=== PATIENT | female | born 1950 | race Caucasian/White ===

== ENCOUNTER 2024-07-31 02:41 | Inpatient (IN) | payer MEDICARE, OTHER ==
--- NOTE | 2024-07-31 04:13 | ED ---
Weakness HPI - General Chief complaint: Weakness Stated complaint: Weakness Time Seen by Provider: 07/31/24 04:13 Source: patient, EMS Mode of arrival: EMS Limitations: no limitations - History of Present Illness Initial comments: 74-year-old female presents to the emergency department reporting weakness. States over the past 4 days she has had weakness in her lower extremities to the point where she is falling. States that she does not feel coordinated. Reports that last week she had influenza. Patient denies any chest pain or shortness of breath. No nausea or vomiting. Patient is an extremely poor historian. Denies having any history of heart disease. Does admit to alcohol use. No changes in her bowel or bladder habits. No other alleviating, precipitating or modifying factors - Related Data Allergies Allergy/AdvReac Type Severity Reaction Status Date / Time No Known Allergies Allergy Verified 07/31/24 02:52 Review of Systems ROS Statement: Those systems with pertinent positive or pertinent negative responses have been documented in the HPI. ROS Other: All systems not noted in ROS Statement are negative. Past Medical History History of Any Multi-Drug Resistant Organisms: None Reported Past Surgical History: Section, Hysterectomy Smoking Status: Current every day smoker Past Alcohol Use History: Occasional Past Drug Use History: None Reported General Exam Limitations: no limitations General appearance: alert, appears intoxicated Head exam: Present: atraumatic, normocephalic, normal inspection Eye exam: Present: normal appearance, PERRL, EOMI. Absent: scleral icterus, conjunctival injection, periorbital swelling ENT exam: Present: normal exam, mucous membranes moist Neck exam: Present: normal inspection. Absent: tenderness, meningismus, lymphadenopathy Respiratory exam: Present: normal lung sounds bilaterally. Absent: respiratory distress, wheezes, rales, rhonchi, stridor Cardiovascular Exam: Present: regular rate, normal rhythm, normal heart sounds. Absent: systolic murmur, diastolic murmur, rubs, gallop, clicks GI/Abdominal exam: Present: soft, normal bowel sounds. Absent: distended, tenderness, guarding, rebound, rigid Extremities exam: Present: normal inspection, full ROM, normal capillary refill. Absent: tenderness, pedal edema, joint swelling, calf tenderness Back exam: Present: normal inspection Neurological exam: Present: alert, oriented X3, CN II-XII intact Psychiatric exam: Present: normal affect, normal mood Skin exam: Present: warm, dry, intact, normal color. Absent: rash Course Vital Signs 07/31/24 02:43 Temperature 97.7 F Pulse Rate 67 Respiratory 18 Rate Blood Pressure 111/80 O2 Sat by Pulse 100 Oximetry Medical Decision Making - Medical Decision Making Was pt. sent in by a medical professional or institution (KIMI Hernadez, [employer], urgent care, hospital, or prison...) When possible be specific @ -[No] Did you speak to anyone other than the patient for history (EMS, parent, family, police, friend...)? What history was obtained from this source @ -[No] Did you review nursing and triage notes (agree or disagree)? Why? @ -[I reviewed and agree with nursing and triage notes] Were old charts reviewed (outside hosp., previous admission, EMS record, old EKG, old radiological studies, urgent care reports/EKG's, prison records)? Report findings @ -[No old charts were reviewed] Differential Diagnosis (chest pain, altered mental status, abdominal pain women, abdominal pain men, vaginal bleeding, weakness, fever, dyspnea, syncope, headache, dizziness, GI bleed, back pain, seizure, CVA, palpatations, mental health, musculoskeletal)? @ -[not applicable] EKG interpreted by me (3pts min.). @ -Yes and demonstrates sinus rhythm with a rate of 66. MT interval 148. QRS 83. Qtc 482. Diffuse ST depression X-rays interpreted by me (1pt min.). @ -[None done] CT interpreted by me (1pt min.). @ -[None done] U/S interpreted by me (1pt. min.). @ -[None done] What testing was considered but not performed or refused? (CT, X-rays, U/S, labs)? Why? @ -[None] What meds were considered but not given or refused? Why? @ -[None] Did you discuss the management of the patient with other professionals (professionals i.e. KIMI Hernadez, [employer], lab, RT, psych nurse, community mental health social worker, medical apparatus model maker, teacher, strategic intelligence officer, case operator)? Give summary @ -[No] Was smoking cessation discussed for >3mins.? @ -[No] Was critical care preformed (if so, how long)? @ -[No] Were there social determinants of health that impacted care today? How? (Homelessness, low income, unemployed, alcoholism, drug addiction, transportation, low edu. Level, literacy, decrease access to med. care, fci, rehab)? @ -[No] Was there de-escalation of care discussed even if they declined (Discuss DNR or withdrawal of care, Hospice)? DNR status @ -[No] What co-morbidities impacted this encounter? (DM, HTN, Smoking, COPD, CAD, Cancer, CVA, ARF, Chemo, Hep., AIDS, mental health diagnosis, sleep apnea, morbid obesity)? @ -[None] Was patient admitted / discharged? Hospital course, mention meds given and route, prescriptions, significant lab abnormalities, going to OR and other pertinent info. @ -[hospital course] Undiagnosed new problem with uncertain prognosis? @ -[No] Drug Therapy requiring intensive monitoring for toxicity (Heparin, Nitro, I nsulin, Cardizem)? @ -[No] Were any procedures done? @ -[No] Diagnosis/symptom? @ -[default] Acute, or Chronic, or Acute on Chronic? @ -[default] Uncomplicated (without systemic symptoms) or Complicated (systemic symptoms)? @ -[default] Side effects of treatment? @ -[No] Exacerbation, Progression, or Severe Exacerbation? @ -[No] Poses a threat to life or bodily function? How? (Chest pain, [place], [place], pneumonia, PE, COPD, DKA, ARF, appy, cholecystitis, CVA, Diverticulitis, Homicidal, Suicidal, threat to staff... and all critical care pts) @ -[No] - Lab Data Result diagrams: 07/31/24 02:50 07/31/24 02:50 Lab Results 07/31/24 07/31/24 07/31/24 Range/Units 02:50 02:50 02:50 WBC 13.41 H (4.50-10.00) 10*3/uL RBC 3.13 L (4.10-5.20) 10*6/uL Hgb 12.8 (12.0-15.0) g/dL Hct 34.9 L (37.2-46.3) % MCV 111.5 H (80.0-97.0) fL MCH 40.9 H (27.0-32.0) pg MCHC 36.7 (32.0-37.0) g/dL Plt Count 264 (140-440) 10*3/uL MPV 11.5 (9.5-12.2) fL Immature Gran % (Auto) 0.4 % Neutrophils % 82.1 % Lymphocytes % 8.4 % Monocytes % 8.7 % Eosinophils % 0.1 % Basophils % 0.3 % Immature Gran # 0.06 H (0.00-0.04) 10*3/uL Neutrophils # 11.02 H (1.80-7.70) 10*3/uL Lymphocytes # 1.12 (0.90-5.00) 10*3/uL Monocytes # 1.16 H (0.20-1.00) 10*3/uL Eosinophils # 0.01 L (0.04-0.35) 10*3/uL Basophils # 0.04 (0.00-0.10) 10*3/uL Manual Slide Review Performed PT 11.4 (10.0-12.5) sec INR 1.0 (<1.2) APTT 22.4 (22.0-30.0) sec Sodium 129 L (137-145) mmol/L Potassium 4.0 (3.5-5.1) mmol/L Chloride 94 L (98-107) mmol/L Carbon Dioxide 18 L (22-30) mmol/L Anion Gap 17 mmol/L BUN 14 (7-17) mg/dL Creatinine 0.61 (0.52-1.04) mg/dL Est GFR (CKD-EPI)AfAm >90 (>60 ml/min/1.73 sqM) Est GFR (CKD-EPI)NonAf >90 (>60 ml/min/1.73 sqM) Glucose 76 (74-99) mg/dL Lactic Ac Sepsis Rflx Plasma Lactic Acid Sher (0.7-2.0) mmol/L Calcium 9.0 (8.4-10.2) mg/dL Magnesium 1.3 L (1.6-2.3) mg/dL Total Bilirubin 1.1 (0.2-1.3) mg/dL AST 66 H (14-36) U/L ALT 38 H (4-34) U/L Alkaline Phosphatase 99 (38-126) U/L Troponin I (0.000-0.034) ng/mL NT-Pro-B Natriuret Pep 918 pg/mL Total Protein 5.7 L (6.3-8.2) g/dL Albumin 3.2 L (3.5-5.0) g/dL Urine Color Urine Appearance (Clear) Urine pH (5.0-8.0) Ur Specific Lutz (1.001-1.035) Urine Protein (Negative) Urine Glucose (UA) (Negative) Urine Ketones (Negative) Urine Blood (Negative) Urine Nitrite (Negative) Urine Bilirubin (Negative) Urine Urobilinogen (<2.0) mg/dL Ur Leukocyte Esterase (Negative) Urine RBC (0-5) /hpf Urine WBC (0-5) /hpf Urine WBC Clumps (None) /hpf Ur Squamous Epith Cells (0-4) /hpf Urine Bacteria (None) /hpf Hyaline Casts (0-2) /lpf Urine Mucus (None) /hpf Serum Alcohol 55 mg/dL Influenza Type A (PCR) (Not Detectd) Influenza Type B (PCR) (Not Detectd) RSV (PCR) (Not Detectd) SARS-CoV-2 (PCR) (Not Detectd) 07/31/24 07/31/24 07/31/24 Range/Units 02:50 02:50 04:19 WBC (4.50-10.00) 10*3/uL RBC (4.10-5.20) 10*6/uL Hgb (12.0-15.0) g/dL Hct (37.2-46.3) % MCV (80.0-97.0) fL MCH (27.0-32.0) pg MCHC (32.0-37.0) g/dL Plt Count (140-440) 10*3/uL MPV (9.5-12.2) fL Immature Gran % (Auto) % Neutrophils % % Lymphocytes % % Monocytes % % Eosinophils % % Basophils % % Immature Gran # (0.00-0.04) 10*3/uL Neutrophils # (1.80-7.70) 10*3/uL Lymphocytes # (0.90-5.00) 10*3/uL Monocytes # (0.20-1.00) 10*3/uL Eosinophils # (0.04-0.35) 10*3/uL Basophils # (0.00-0.10) 10*3/uL Manual Slide Review PT (10.0-12.5) sec INR (<1.2) APTT (22.0-30.0) sec Sodium (137-145) mmol/L Potassium (3.5-5.1) mmol/L Chloride (98-107) mmol/L Carbon Dioxide (22-30) mmol/L Anion Gap mmol/L BUN (7-17) mg/dL Creatinine (0.52-1.04) mg/dL Est GFR (CKD-EPI)AfAm (>60 ml/min/1.73 sqM) Est GFR (CKD-EPI)NonAf (>60 ml/min/1.73 sqM) Glucose (74-99) mg/dL Lactic Ac Sepsis Rflx Plasma Lactic Acid Sher 4.3 H* (0.7-2.0) mmol/L Calcium (8.4-10.2) mg/dL Magnesium (1.6-2.3) mg/dL Total Bilirubin (0.2-1.3) mg/dL AST (14-36) U/L ALT (4-34) U/L Alkaline Phosphatase (38-126) U/L Troponin I 0.013 (0.000-0.034) ng/mL NT-Pro-B Natriuret Pep pg/mL Total Protein (6.3-8.2) g/dL Albumin (3.5-5.0) g/dL Urine Color Urine Appearance (Clear) Urine pH (5.0-8.0) Ur Specific Lutz (1.001-1.035) Urine Protein (Negative) Urine Glucose (UA) (Negative) Urine Ketones (Negative) Urine Blood (Negative) Urine Nitrite (Negative) Urine Bilirubin (Negative) Urine Urobilinogen (<2.0) mg/dL Ur Leukocyte Esterase (Negative) Urine RBC (0-5) /hpf Urine WBC (0-5) /hpf Urine WBC Clumps (None) /hpf Ur Squamous Epith Cells (0-4) /hpf Urine Bacteria (None) /hpf Hyaline Casts (0-2) /lpf Urine Mucus (None) /hpf Serum Alcohol mg/dL Influenza Type A (PCR) Not Detected (Not Detectd) Influenza Type B (PCR) Not Detected (Not Detectd) RSV (PCR) Not Detected (Not Detectd) SARS-CoV-2 (PCR) Not Detected (Not Detectd) 07/31/24 07/31/24 Range/Units 05:12 05:55 WBC (4.50-10.00) 10*3/uL RBC (4.10-5.20) 10*6/uL Hgb (12.0-15.0) g/dL Hct (37.2-46.3) % MCV (80.0-97.0) fL MCH (27.0-32.0) pg MCHC (32.0-37.0) g/dL Plt Count (140-440) 10*3/uL MPV (9.5-12.2) fL Immature Gran % (Auto) % Neutrophils % % Lymphocytes % % Monocytes % % Eosinophils % % Basophils % % Immature Gran # (0.00-0.04) 10*3/uL Neutrophils # (1.80-7.70) 10*3/uL Lymphocytes # (0.90-5.00) 10*3/uL Monocytes # (0.20-1.00) 10*3/uL Eosinophils # (0.04-0.35) 10*3/uL Basophils # (0.00-0.10) 10*3/uL Manual Slide Review PT (10.0-12.5) sec INR (<1.2) APTT (22.0-30.0) sec Sodium (137-145) mmol/L Potassium (3.5-5.1) mmol/L Chloride (98-107) mmol/L Carbon Dioxide (22-30) mmol/L Anion Gap mmol/L BUN (7-17) mg/dL Creatinine (0.52-1.04) mg/dL Est GFR (CKD-EPI)AfAm (>60 ml/min/1.73 sqM) Est GFR (CKD-EPI)NonAf (>60 ml/min/1.73 sqM) Glucose (74-99) mg/dL Lactic Ac Sepsis Rflx Y Plasma Lactic Acid Sher (0.7-2.0) mmol/L Calcium (8.4-10.2) mg/dL Magnesium (1.6-2.3) mg/dL Total Bilirubin (0.2-1.3) mg/dL AST (14-36) U/L ALT (4-34) U/L Alkaline Phosphatase (38-126) U/L Troponin I (0.000-0.034) ng/mL NT-Pro-B Natriuret Pep pg/mL Total Protein (6.3-8.2) g/dL Albumin (3.5-5.0) g/dL Urine Color Yellow Urine Appearance Cloudy H (Clear) Urine pH 6.5 (5.0-8.0) Ur Specific Lutz 1.014 (1.001-1.035) Urine Protein 1+ H (Negative) Urine Glucose (UA) Negative (Negative) Urine Ketones 1+ H (Negative) Urine Blood Moderate H (Negative) Urine Nitrite Positive H (Negative) Urine Bilirubin Negative (Negative) Urine Urobilinogen 4.0 (<2.0) mg/dL Ur Leukocyte Esterase Large H (Negative) Urine RBC 18 H (0-5) /hpf Urine WBC >182 H (0-5) /hpf Urine WBC Clumps Occasional H (None) /hpf Ur Squamous Epith Cells 2 (0-4) /hpf Urine Bacteria Many H (None) /hpf Hyaline Casts 10 H (0-2) /lpf Urine Mucus Rare H (None) /hpf Serum Alcohol mg/dL Influenza Type A (PCR) (Not Detectd) Influenza Type B (PCR) (Not Detectd) RSV (PCR) (Not Detectd) SARS-CoV-2 (PCR) (Not Detectd) Disposition Clinical Impression: Abnormal EKG, Multiple falls, Ataxia, Alcohol use Disposition: ADMITTED IP TO THIS [facility] Condition: Stable Is patient prescribed a controlled substance at d/c from ED?: No Referrals: None,Stated [REFERRING] - 1-2 days Time of Disposition: 07:11 Decision to Admit Reason: Admit from EC Decision Date: 07/31/24 Decision Time: 07:11
[2024-07-31 04:31] LABS: Basophils # (A) 0.04 10*3/uL (0.00-0.10); Basophils % (A) 0.3 %; Eosinophils # (A) 0.01 10*3/uL (0.04-0.35); Eosinophils % (A) 0.1 %; HCT 34.9 % (37.2-46.3); HGB 12.8 g/dL (12.0-15.0); Lymphocytes # (A) 1.12 10*3/uL (0.90-5.00); Lymphocytes % (A) 8.4 %; MCH 40.9 pg (27.0-32.0); MCHC 36.7 g/dL (32.0-37.0); MCV 111.5 fL (80.0-97.0); Mean Platelet Volume 11.5 fL (9.5-12.2); Monocytes # (A) 1.16 10*3/uL (0.20-1.00); Monocytes % (A) 8.7 %; Neutrophils # (A) 11.02 10*3/uL (1.80-7.70); Neutrophils % (A) 82.1 %; Platelet Count 264 10*3/uL (140-440); RBC 3.13 10*6/uL (4.10-5.20); RDW 12.2 % (11.5-14.5); WBC 13.41 10*3/uL (4.50-10.00)
[2024-07-31 04:36] LABS: ALT 38 U/L (4-34); AST 66 U/L (14-36); African American GFR (CKD) >90 (>60 ml/min/1.73 sqM); Albumin 3.2 g/dL (3.5-5.0); Alcohol 55 mg/dL; Alkaline Phosphatase 99 U/L (38-126); Anion Gap 17 mmol/L; Blood Urea Nitrogen 14 mg/dL (7-17); Carbon Dioxide 18 mmol/L (22-30); Chloride 94 mmol/L (98-107); Glucose 76 mg/dL (74-99); Magnesium 1.3 mg/dL (1.6-2.3); Non-African American GFR(CKD) >90 (>60 ml/min/1.73 sqM); Sodium 129 mmol/L (137-145); Total Bilirubin 1.1 mg/dL (0.2-1.3); Total Protein 5.7 g/dL (6.3-8.2)
[2024-07-31 04:45] LABS: NT-Pro-B-Type Natriuretic Pept 918 pg/mL
[2024-07-31 05:06] LABS: Partial Thromboplastin Time 22.4 sec (22.0-30.0); Prothrombin Time 11.4 sec (10.0-12.5)
[2024-07-31 05:12] LABS: Influenza A Not Detected (Not Detectd); Influenza B Not Detected (Not Detectd); RSV Not Detected (Not Detectd)
[2024-07-31 07:02] LABS: Appearance,Urine Cloudy (Clear); Bacteria,Urine Many /hpf; Bilirubin,Urine Negative (Negative); Blood,Urine Moderate (Negative); Color,Urine Yellow; Glucose,Urine (UA) Negative (Negative); Hyaline Casts,Urine 10 /lpf (0-2); Ketones,Urine 1+ (Negative); Leukocyte Esterase,Urine Large (Negative); Mucus,Urine Rare /hpf; Nitrite,Urine Positive (Negative); PH, Urine 6.5 (5.0-8.0); Protein,Urine 1+ (Negative); RBC,Urine 18 /hpf (0-5); Specific Gravity,Urine 1.014 (1.001-1.035); Squamous Epithelial Cell,Urine 2 /hpf (0-4); WBC,Urine >182 /hpf (0-5)
[2024-07-31] MEDS ORDERED: NALOXONE 0.4 MG/ML 1 ML VIAL IV PRN (07:11)
[2024-07-31] MEDS ORDERED: LORazepam 0.5 MG TAB PO PRN (07:18)
[2024-07-31] MEDS ORDERED: LORazepam 1 MG TAB PO PRN ×3 (07:18)
--- NOTE | 2024-07-31 07:21 | XR ---
EXAMINATION TYPE: XR chest 2V DATE OF EXAM: 07/31/2024 5:33 AM COMPARISON: None CLINICAL INDICATION: Female, 74 years old with history of Cough/pain, , TECHNIQUE: AP and lateral views FINDINGS: Heart upper limits of normal in size. Aorta and pulmonary vasculature within normal limits. No consol idation or pleural effusion. Mild hyperinflation. IMPRESSION: Mild hyperinflation may relate to a depth of inspiration or underlying emphysema. Otherwise, no acute process seen. [facility], Workstation: [employer], 07/31/2024 7:19 AM
--- NOTE | 2024-07-31 07:21 | CT ---
EXAMINATION TYPE: CT brain wo con DATE OF EXAM: 07/31/2024 5:32 AM COMPARISON: None. CLINICAL INDICATION: Female, 74 years old with history of ataxia, Patient presents to the ED via EMS from home for increased fatigue, decreased appetite, and general weakness x 5 days., TECHNIQUE: Examination was done in axial plane without intravenous contrast. Coronal and sagittal r econstructions performed. CT DLP: 1097.4 mGycm, Automated exposure control for dose reduction was used. FINDINGS: There is no evidence of acute intracranial hemorrhage, acute ischemic changes, mass, mass-effect, or extra-axial fluid collection. There is no effacement of cerebral sulci or basal subarachnoid cister ns. There is no hydrocephalus. There is no midline shift. Huitron-white matter distinction is preserv ed. Mild patchy periventricular white matter hypodensity. Atherosclerotic calcifications within the bilat eral carotid siphons. Tiny 8 mm polyp or mucosal retention cyst floor of the left maxillary sinus. Otherwise, paranasal sin uses and mastoid air cells well pneumatized. Orbits and globes are intact. IMPRESSION: Mild changes of chronic small vessel ischemic disease. No acute intracranial abnormality seen. [facility], , 07/31/2024 7:18 AM
[2024-07-31] MEDS: MAGNESIUM SULFATE-D5W PMX 1 GM in DEXTROSE/WATER 1 100ML.BAG IVPB SCH (07:38)
--- NOTE | 2024-07-31 10:04 | P.CRDCN ---
History of Present Illness History of present illness: HISTORY OF PRESENT ILLNESS: This is a 74-year-old female with a past medical history significant for alcohol abuse and nicotine dependence. 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 We have been asked to see the patient in consultation for abnormal EKG. Patient examined at the bedside in the emergency room. Patient presented to the hospital with generalized weakness and frequent falls. Patient denied having any chest pain or pressure. She denied having any shortness of breath. She denies any dizziness or lightheadedness. Denies any episodes of syncope at home. Blood pressure 122/69. DIAGNOSTICS: - EKG reveals sinus mechanism with asymmetrical T wave inversions in inferior lateral leads - Chest xray mild hyperinflation may relate to a depth of inspiration or underlying emphysema. Otherwise no acute process seen.. - Laboratory data: WBC 13.41. Hemoglobin 12.8. Platelet count 264. Sodium 129. Potassium 4.0. BUN 14. Creatinine 0.61. Lactic acid 4.3. Repeat 2.5. proBNP 918. Troponin negative x 2. Serum alcohol 55. - Current home cardiac medications include atenolol 50 mg daily. - No previous echocardiogram, stress test, or cardiac catheterization available in EMR for review REVIEW OF SYSTEMS: At the time of my exam: CONSTITUTIONAL: Denies fever or chills. HEENT: Denies blurred vision, vision changes, or eye pain. Denies hemoptysis CARDIOVASCULAR: Denies chest pain. Denies orthopnea. Denies PND. Denies palpitations RESPIRATORY: Denies shortness of breath. GASTROINTESTINAL: Denies abdominal pain. Denies nausea or vomiting. HEMATOLOGIC: Denies bleeding disorders. GENITOURINARY: Denies any blood in urine. SKIN: Denies pruitis. Denies rash. PHYSICAL EXAM: VITAL SIGNS: Reviewed. GENERAL: Well-developed in no acute distress. HEENT: Head is normocephalic. Pupils are equal, round. Sclerae anicteric. Mucous membranes of the mouth are moist. Neck supple. No JVD or thyromegaly LUNGS: Respirations even and unlabored. Lungs essentially clear to auscultation bilaterally. HEART: Regular rate and rhythm. S1 and S2 heard. ABDOMEN: Soft. Nondistended. Nontender. EXTREMITIES: Normal range of motion. No clubbing or cyanosis. Peripheral pulse s intact. No lower extremity edema NEUROLOGIC: Lethargic ASSESSMENT: Generalized weakness and falls Acute alcohol intoxication, serum alcohol 55 Hyponatremia Lactic acidosis Abnormal UA, possible UTI Abnormal EKG, likely representing LVH, no evidence of acute coronary syndrome History of nicotine dependence History of alcohol abuse PLAN: An acute coronary event has been ruled out Obtain 2D echo to assess cardiac structure and function Continue telemetry monitoring No indication for stress testing or cardiac catheterization at this time Further recommendations pending patient course Nurse practitioner note has been reviewed by physician. Signing provider agrees with the documented findings, assessment, and plan of care documented by SETTLEMENT TECHNICIAN as a scribe. Past Medical History History of Any Multi-Drug Resistant Organisms: None Reported Past Surgical History: Section, Hysterectomy Smoking Status: Current every day smoker Past Alcohol Use History: Occasional Past Drug Use History: None Reported Medications and Allergies Home Medications Medication Instructions Recorded Confirmed Type Fluticasone Nasal Jenkins [Flonase 2 spr EA NOSTRIL DAILY 07/31/24 07/31/24 History Nasal Jenkins] Fluticasone Nasal Jenkins [Flonase 2 spr EA NOSTRIL HS PRN 07/31/24 07/31/24 History Nasal Jenkins] PARoxetine HCL [Paxil] 30 mg PO DAILY 07/31/24 07/31/24 History atenoloL [Tenormin] 50 mg PO DAILY 07/31/24 07/31/24 History Allergies Allergy/AdvReac Type Severity Reaction Status Date / Time No Known Allergies Allergy Verified 07/31/24 09:54 Physical Exam Vitals: Vital Signs Temp Pulse Resp BP Pulse Ox 07/31/24 09:54 78 17 122/69 96 07/31/24 02:43 97.7 F 67 18 111/80 100 Intake and Output 07/30/24 07/31/24 07/31/24 22:59 06:59 14:59 Other: Weight 56.699 kg Results 07/31/24 02:50 07/31/24 02:50 Cardiac Enzymes 07/31/24 07/31/24 07/31/24 Range/Units 02:50 02:50 07:30 AST 66 H (14-36) U/L Troponin I 0.013 0.021 (0.000-0.034) ng/mL Coagulation 07/31/24 Range/Units 02:50 PT 11.4 (10.0-12.5) sec APTT 22.4 (22.0-30.0) sec CBC 07/31/24 Range/Units 02:50 WBC 13.41 H (4.50-10.00) 10*3/uL RBC 3.13 L (4.10-5.20) 10*6/uL Hgb 12.8 (12.0-15.0) g/dL Hct 34.9 L (37.2-46.3) % Plt Count 264 (140-440) 10*3/uL Comprehensive Metabolic Panel 07/31/24 Range/Units 02:50 Sodium 129 L (137-145) mmol/L Potassium 4.0 (3.5-5.1) mmol/L Chloride 94 L (98-107) mmol/L Carbon Dioxide 18 L (22-30) mmol/L BUN 14 (7-17) mg/dL Creatinine 0.61 (0.52-1.04) mg/dL Glucose 76 (74-99) mg/dL Calcium 9.0 (8.4-10.2) mg/dL AST 66 H (14-36) U/L ALT 38 H (4-34) U/L Alkaline Phosphatase 99 (38-126) U/L Total Protein 5.7 L (6.3-8.2) g/dL Albumin 3.2 L (3.5-5.0) g/dL Current Medications Generic Name Dose Route Start Last Admin Trade Name Freq PRN Reason Stop Dose Admin Lorazepam 0.5 mg 07/31/24 07:18 Lorazepam 0.5 Mg Tab PO Q4HR PRN Ciwa 4 To 5 Lorazepam 1 mg 07/31/24 07:18 Lorazepam 1 Mg Tab PO Q4HR PRN Ciwa 6 To 7 Lorazepam 2 mg 07/31/24 07:18 Lorazepam 1 Mg Tab PO Q2HR PRN Ciwa 10 or greater Lorazepam 2 mg 07/31/24 07:18 Lorazepam 1 Mg Tab PO Q3HR PRN Ciwa 8 To 9 Naloxone HCl 0.2 mg 07/31/24 07:11 Naloxone 0.4 Mg/Ml 1 Ml Vial IV Q2M PRN Opioid Reversal Intake and Output 07/30/24 07/31/24 07/31/24 22:59 06:59 14:59 Other: Weight 56.699 kg 07/31/24 02:50 07/31/24 02:50
[2024-07-31] MEDS ORDERED: FLUTICASONE NASAL 50MCG/SPRAY 16GM BTL EA NOSTRIL PRN (12:25)
--- NOTE | 2024-07-31 12:51 | CA ---
Transthoracic Echo Report Name: Brittany Sheppard Age: 74 Gender: F : 1950 Exam Date: 07/31/2024 11:21 Exam Location: [facility] Ht (in): 65 Wt (lb): 125 Ordering Physician: Felicity Cabrera Attending/Referring Phys: [id number], Deborah Blast Furnace Operator Landy Santos RDCS Procedure CPT: Indications: abnormal ekg Cardiac Hx: Technical Quality: Fair Contrast 1: Total Dose (mL): Contrast 2: Total Dose (mL): MEASUREMENTS (Male / Female) Normal Values 2D ECHO LV Diastolic Diameter PLAX 3.6 cm 4.2 - 5.9 / 3.9 - 5.3 cm LV Systolic Diameter PLAX 2.3 cm IVS Diastolic Thickness 1.1 cm 0.6 - 1.0 / 0.6 - 0.9 cm LVPW Diastolic Thickness 1.1 cm 0.6 - 1.0 / 0.6 - 0.9 cm LV Relative Wall Thickness 0.6 RV Internal Dim ED PLAX 1.8 cm LA Systolic Diameter LX 2.8 cm 3.0 - 4.0 / 2.7 - 3.8 cm LV Diastolic Volume MOD BP 30.6 cm??? 67 - 155 / 56 - 104 cm??? LV Systolic Volume MOD BP 10.1 cm??? 22 - 58 / 19 - 49 cm??? LV Ejection Fraction MOD BP 67.1 % >= 55 % LV Cardiac Index MOD BP 980.8 cm???/min???m??? LV Diastolic Volume MOD 4C 35.6 cm??? LV Systolic Volume MOD 4C 10.9 cm??? LV Ejection Fraction MOD 4C 69.4 % LV Cardiac Index MOD 4C 1179.7 cm???/min???m??? LV Diastolic Length 4C 5.5 cm LV Systolic Length 4C 4.5 cm LV Diastolic Volume MOD 2C 23.9 cm??? LV Systolic Volume MOD 2C 8.6 cm??? LV Ejection Fraction MOD 2C 63.9 % LV Cardiac Index MOD 2C 729.6 cm???/min???m??? LV Diastolic Length 2C 5.0 cm LV Systolic Length 2C 4.1 cm M-MODE Aortic Root Diameter MM 2.8 cm LA Systolic Diameter MM 2.8 cm LA Ao Ratio MM 1.0 AV Cusp Separation MM 2.2 cm DOPPLER AV Peak Velocity 112.8 cm/s AV Peak Gradient 5.1 mmHg AI Peak Velocity 285.3 cm/s AI Peak Gradient 32.6 mmHg AI Pressure Half Time 1288.2 ms Mitral E Point Velocity 61.6 cm/s Mitral A Point Velocity 95.5 cm/s Mitral E to A Ratio 0.6 MV Deceleration Time 348.2 ms MV E' Velocity 5.0 cm/s Mitral E to MV E' Ratio 12.3 TR Peak Velocity 251.9 cm/s TR Peak Gradient 25.4 mmHg Right Ventricular Systolic Press 35.5 mmHg FINDINGS Left Ventricle Left ventricular ejection fraction is estimated at 55-60%. Mildly increased septal wall thickness. Mildly increased posterior wall thickness. Normal left ventricular systolic function with no obvious regional wall motion abnormalities. Right Ventricle Normal right ventricular size and function. Mild pulmonary hypertension. Right Atrium Normal right atrial size. Left Atrium Normal left atrial size. Mitral Valve Structurally normal mitral valve. Trace mitral regurgitation. No mitral stenosis. Aortic Valve Trileaflet aortic valve. No aortic stenosis. Trace aortic regurgitation. Tricuspid Valve Structurally normal tricuspid valve. Moderate tricuspid regurgitation. No tricuspid stenosis. Pulmonic Valve Structurally normal pulmonic valve. Trace pulmonic regurgitation. No pulmonic stenosis. Pericardium No pericardial or pleural effusion. Aorta Normal size aortic root and proximal ascending aorta. CONCLUSIONS Reason for test. Abnormal EKG with asymmetric T wave inversions in the lateral precordial leads and inferior leads Mild LVH with preserved systolic function Normal RV size and function Previewed by: Dr. Shad Etienne MD (Electronically Signed) Final Date: 31 Jul 2024 12:50
--- NOTE | 2024-07-31 23:28 | HP ---
HISTORY AND PHYSICAL CHIEF COMPLAINT: Weakness and fall and EtOH. HISTORY OF PRESENT ILLNESS: A 74-year-old woman with a past medical history of apparently EtOH is complaining of weakness and the patient apparently fell and also complaining of upper back pain. There is no history of any fever, rigors, chills at this time. PAST MEDICAL HISTORY: Reviewed includes section, hysterectomy, nicotine dependence, EtOH. HOME MEDICATIONS: Reviewed include Flonase and rest of the medications in the chart also reviewed. ALLERGIES: None. FAMILY HISTORY: No history of heart disease or strokes in the family. SOCIAL HISTORY: ETOH and smoking. REVIEW OF SYSTEMS: A 14-point review of systems is negative as mentioned earlier. PHYSICAL EXAMINATION: VITAL SIGNS: Pulse 67, blood pressure 111/80, respirations 18. HEENT: Conjunctivae normal. NECK: No jugular venous distention. CARDIOVASCULAR: S1, S2. RESPIRATION: Breath sounds diminished at the bases. ABDOMEN: Soft, nontender. LEGS: No edema. NERVOUS SYSTEM: No focal deficit. LABORATORY DATA: Lactic acid 2.5. UA noted. WBC 13.4. ASSESSMENT: 1. Generalized weakness and fall. 2. Rule out urinary tract infection with sepsis. 3. History of EtOH possibly and history of nicotine dependence. 4. Elevated AST/ALT. 5. Hyponatremia. 6. Increased WBC. 7. Gait dysfunction. 8. History of nicotine dependence. RECOMMENDATION: 1. This 74-year-old woman presented with multiple complex medical issues, we will monitor the patient closely. I would recommend CIWA protocol. I would also recommend empiric antibiotics, cultures, Infectious Disease evaluation, PT/OT evaluation, social work consult. The patient might require ECF evaluation. 2. I would also recommend x-rays of the back if the pain persist. Prognosis is guarded because of multiple complex medical issues. Cardiology also been consulted. 3. ST-T changes in the EKG, rule out coronary artery disease. MMODL / IJN: [id number] /
[2024-08-01] MEDS: PANTOPRAZOLE 40 MG TABLET PO SCH (06:11)
[2024-08-01] MEDS: PARoxetine 10 MG TAB PO SCH (08:23)
[2024-08-01] MEDS: atenoloL 50 MG TAB PO SCH (08:23)
[2024-08-01] MEDS: FLUTICASONE NASAL 50MCG/SPRAY 16GM BTL EA NOSTRIL SCH (08:23)
[2024-08-01 09:19] LABS: HCT 34.6 % (37.2-46.3); HGB 12.4 g/dL (12.0-15.0); MCH 40.1 pg (27.0-32.0); MCHC 35.8 g/dL (32.0-37.0); Mean Platelet Volume 11.1 FL (9.5-12.2); NRBC Per 100 WBC 0 X 10*3/uL (0.00-0.01); Platelet Count 208 X 10*3/uL (140-440); RBC 3.09 X 10*6/uL (4.10-5.20); RDW 12.5 % (11.5-14.5); WBC 8.89 X 10*3/uL (4.50-10.00)
[2024-08-01 09:47] LABS: BUN/Creat Ratio 20.17 Ratio (12.00-20.00); Blood Urea Nitrogen 12.1 mg/dL (9.0-27.0); Calcium 8.6 mg/dL (8.7-10.3); Carbon Dioxide 23.5 mmol/L (21.6-31.8); Chloride 92 mmol/L (96-109); Glucose 135 mg/dL (70-110); Potassium 3.5 mmol/L (3.5-5.5); Sodium 130 mmol/L (135-145)
[2024-08-01 10:07] LABS: Basophils # (A) 0.03 X 10*3/uL (0.00-0.10); Basophils % (A) 0.3 %; Eosinophils # (A) 0.01 X 10*3/uL (0.04-0.35); Eosinophils % (A) 0.1 %; Lymphocytes # (A) 0.65 X 10*3/uL (0.90-5.00); Lymphocytes % (A) 7.3 %; Macrocytosis (M) 2+ (None Seen); Monocytes # (A) 0.25 X 10*3/uL (0.20-1.00); Monocytes % (A) 2.8 %; Neutrophils # (A) 7.88 X 10*3/uL (1.80-7.70); Neutrophils % (A) 88.7 %
--- NOTE | 2024-08-01 11:58 | P.PN ---
Subjective Progress Note Date: 08/01/24 This is Bruno Sanchez NP, I'm dictating on behalf of Dr. Etienne's H&P and A&P. Patient was interviewed and examined. Patient is a pleasant 74-year-old female who presented to the hospital for generalized weakness and frequent falls, and cardiology was consulted to evaluate an abnormal EKG. EKG showed asymmetrical T wave inversions in the inferior and lateral leads. Today patient reports that she is feeling okay. She denies any chest pain or shortness of breath. Echocardiogram was completed yesterday which demonstrates a left ventricular ejection fraction of 55 to 60%, mildly increased septal wall thickness, mildly increased posterior wall thickness, normal left ventricular systolic function with no obvious regional wall motion abnormalities, normal RV size and function. GENERAL: Well-appearing, well-nourished and in no acute distress. NECK: Supple without JVD or thyromegaly. LUNGS: Breath sounds clear to auscultation bilaterally. Respiration equal and unlabored. No wheezes, rales or rhonchi. HEART: Regular rate and rhythm without murmurs, rubs or gallops. S1 and S2 heard. EXTREMITIES: Normal range of motion, no edema. No clubbing or cyanosis. Peripheral pulses intact and strong. VITALS: Temp 98.1, pulse 75, respirations 16, blood pressure 97/64, O2 saturation 97% on room air TELEMETRY: Sinus mechanism LABS: White count 8.8, hemoglobin 12.4, platelets 208, sodium 130, potassium 3.5, chloride 92, BUN 12.1, creatinine 0.6 calcium 8.6 IMPRESSION: 1. Generalized weakness and falls 2. Acute alcohol intoxication, serum alcohol 55 3. Hyponatremia 4. Lactic acidosis 5. Abnormal UA, possible UTI 6. Abnormal EKG, representing mild LVH, no evidence of acute coronary syndrome 7. History of nicotine dependence 8. History of alcohol abuse PLAN: Continue current medications as prescribed. No further recommendations from a cardiology standpoint. Patient can be discharged from a cardiology standpoint. Any further testing will be done as an outpatient. Patient may follow-up with Dr. Etienne 1 to 2 weeks after discharge. Thank you for allowing us to participate in the care of this patient. Objective - Vital Signs Vital signs: Vital Signs Temp 98.1 F 08/01/24 07:00 Pulse 75 08/01/24 07:00 Resp 16 08/01/24 07:00 BP 97/64 08/01/24 07:00 Pulse Ox 97 08/01/24 07:00 FiO2 Intake & Output 07/31/24 08/01/24 08/01/24 18:59 06:59 18:59 Weight 56.699 kg Other: Voiding Method Bedside Commode # Voids 1 # Bowel Movements 0 - Labs CBC & Chem 7: 08/01/24 06:42 08/01/24 06:42 Labs: Abnormal Lab Results - Last 24 Hours (Table) 08/01/24 08/01/24 Range/Units 06:42 06:42 RBC 3.09 L (4.10-5.20) X 10*6/uL Hct 34.6 L (37.2-46.3) % MCV 112.0 H (80.0-97.0) FL MCH 40.1 H (27.0-32.0) pg Immature Gran # 0.07 H (0.00-0.04) X 10*3/uL Neutrophils # 7.88 H (1.80-7.70) X 10*3/uL Lymphocytes # 0.65 L (0.90-5.00) X 10*3/uL Eosinophils # 0.01 L (0.04-0.35) X 10*3/uL Macrocytosis (manual) 2+ A (None Seen) Sodium 130 L (135-145) mmol/L Chloride 92 L (96-109) mmol/L Anion Gap 14.50 H (4.00-12.00) mmol/L BUN/Creatinine Ratio 20.17 H (12.00-20.00) Ratio Glucose 135 H (70-110) mg/dL Calcium 8.6 L (8.7-10.3) mg/dL Microbiology - Last 24 Hours (Table) 07/31/24 05:55 Urine Culture - Preliminary Urine,Voided Gram Neg Bacilli 07/31/24 12:42 Blood Culture Gram Stain - Preliminary Blood Blood Culture - Preliminary Molecular ID
--- NOTE | 2024-08-01 16:38 | P.CONS ---
History of Present Illness - Reason for Consult Consult date: 07/31/24 UTI Requesting physician: Bev Tovar - Chief Complaint Weakness and fall x 4 days - History of Present Illness Patient is a 74-year-old female with a past medical history significant for alcohol abuse and nicotine dependence has been brought into the hospital for evaluation of weakness in this patient symptom has been getting worse for the last 4 days and the patient did have multiple falls at home however denies having any loss of consciousness patient denies having any headache or URI symptoms no chest pain shortness with or cough no nausea no vomiting no abdominal pain and no diarrhea denies any burning or frequency of urine on presentation to the hospital patient was afebrile and no fever have been recorded subsequently patient was nontachycardic hypotensive or hypoxic no need for supplemental oxygen patient did have elevated white count 13.41 c reatinine 0.61 liver isms mildly elevated urine has been significantly positive influenza RSV COVID testing was negative serum alcohol level of 55 patient did have a chest x-ray mild hyperinflation may relate to depth of inspiration no acute process patient was started on Rocephin admitted to the hospital infectious he was consulted for possible UTI Review of Systems Positive point and negatives has been mentioned in the HPI, complete review of systems was performed and all other systems are negative Past Medical History History of Any Multi-Drug Resistant Organisms: None Reported Past Surgical History: Section, Hysterectomy Smoking Status: Current every day smoker Past Alcohol Use History: Occasional Past Drug Use History: None Reported Medications and Allergies Home Medications Medication Instructions Recorded Confirmed Type Fluticasone Nasal [place] [Flonase 2 spr EA NOSTRIL DAILY 07/31/24 07/31/24 History Nasal [place]] Fluticasone Nasal [place] [Flonase 2 spr EA NOSTRIL HS PRN 07/31/24 07/31/24 History Nasal [place]] PARoxetine HCL [Paxil] 30 mg PO DAILY 07/31/24 07/31/24 History atenoloL [Tenormin] 50 mg PO DAILY 07/31/24 07/31/24 History Allergies Allergy/AdvReac Type Severity Reaction Status Date / Time No Known Allergies Allergy Verified 07/31/24 09:54 Physical Exam Vitals: Vital Signs Temp Pulse Resp BP Pulse Ox 07/31/24 09:54 78 17 122/69 96 07/31/24 02:43 97.7 F 67 18 111/80 100 Intake and Output 07/30/24 07/31/24 07/31/24 22:59 06:59 14:59 Other: Weight 56.699 kg GENERAL DESCRIPTION: Elderly female lying in bed, no distress. No tachypnea or accessory muscle of respiration use. HEENT: Shows Pallor , no scleral icterus. Oral mucous membrane is dry. No pharyngeal erythema or thrush NECK: Trachea central, no thyromegaly. LUNGS: Unlabored breathing. Clear to auscultation anteriorly. No wheeze or crackle. HEART: S1, S2, regular rate and rhythm. No loud murmur ABDOMEN: Soft, no tenderness , guarding or rigidity, no organomegaly EXTREMITIES: No edema of feet. SKIN: No rash, no masses palpable. NEUROLOGICAL: The patient is awake, , mood and affect normal. Results CBC & Chem 7: 08/01/24 06:42 08/01/24 06:42 Labs: Abnormal Lab Results - Last 24 Hours (Table) 07/31/24 07/31/24 07/31/24 Range/Units 02:50 02:50 02:50 WBC 13.41 H (4.50-10.00) 10*3/uL RBC 3.13 L (4.10-5.20) 10*6/uL Hct 34.9 L (37.2-46.3) % MCV 111.5 H (80.0-97.0) fL MCH 40.9 H (27.0-32.0) pg Immature Gran # 0.06 H (0.00-0.04) 10*3/uL Neutrophils # 11.02 H (1.80-7.70) 10*3/uL Monocytes # 1.16 H (0.20-1.00) 10*3/uL Eosinophils # 0.01 L (0.04-0.35) 10*3/uL Sodium 129 L (137-145) mmol/L Chloride 94 L (98-107) mmol/L Carbon Dioxide 18 L (22-30) mmol/L Plasma Lactic Acid Sher 4.3 H* (0.7-2.0) mmol/L Magnesium 1.3 L (1.6-2.3) mg/dL AST 66 H (14-36) U/L ALT 38 H (4-34) U/L Total Protein 5.7 L (6.3-8.2) g/dL Albumin 3.2 L (3.5-5.0) g/dL Urine Appearance (Clear) Urine Protein (Negative) Urine Ketones (Negative) Urine Blood (Negative) Urine Nitrite (Negative) Ur Leukocyte Esterase (Negative) Urine RBC (0-5) /hpf Urine WBC (0-5) /hpf Urine WBC Clumps (None) /hpf Urine Bacteria (None) /hpf Hyaline Casts (0-2) /lpf Urine Mucus (None) /hpf 07/31/24 07/31/24 Range/Units 05:55 07:30 WBC (4.50-10.00) 10*3/uL RBC (4.10-5.20) 10*6/uL Hct (37.2-46.3) % MCV (80.0-97.0) fL MCH (27.0-32.0) pg Immature Gran # (0.00-0.04) 10*3/uL Neutrophils # (1.80-7.70) 10*3/uL Monocytes # (0.20-1.00) 10*3/uL Eosinophils # (0.04-0.35) 10*3/uL Sodium (137-145) mmol/L Chloride (98-107) mmol/L Carbon Dioxide (22-30) mmol/L Plasma Lactic Acid Sher 2.5 H* (0.7-2.0) mmol/L Magnesium (1.6-2.3) mg/dL AST (14-36) U/L ALT (4-34) U/L Total Protein (6.3-8.2) g/dL Albumin (3.5-5.0) g/dL Urine Appearance Cloudy H (Clear) Urine Protein 1+ H (Negative) Urine Ketones 1+ H (Negative) Urine Blood Moderate H (Negative) Urine Nitrite Positive H (Negative) Ur Leukocyte Esterase Large H (Negative) Urine RBC 18 H (0-5) /hpf Urine WBC >182 H (0-5) /hpf Urine WBC Clumps Occasional H (None) /hpf Urine Bacteria Many H (None) /hpf Hyaline Casts 10 H (0-2) /lpf Urine Mucus Rare H (None) /hpf Assessment and Plan (1) UTI (urinary tract infection) Current Visit: Yes Status: Acute Code(s): N39.0 - URINARY TRACT INFECTION, SITE NOT SPECIFIED SNOMED Code(s): 44299082 (2) Leukocytosis Current Visit: Yes Status: Acute Code(s): D72.829 - ELEVATED WHITE BLOOD CELL COUNT, UNSPECIFIED SNOMED Code(s): 973730891 Plan: 1patient presented hospitalized weakness multiple falls in this patient who did have a significantly positive elevated white count concerning for possible symptomatic UTI however the patient did not have significant urinary symptoms but no other obvious focus for this elevated white count 2will recommend treating the patient with Rocephin while waiting for the culture to finalize We will follow on clinical condition and cultures to further adjust medication if needed Thank you for this consultation we will follow the patient along with you Dictation was produced using [employer] dictation software. please excuse any grammatical, word or spelling errors. Time with Patient: Greater than 30
--- NOTE | 2024-08-01 16:40 | P.PN ---
Subjective Progress Note Date: 08/01/24 Principal diagnosis: Reason for follow-up is UTI and bacteremia Patient is a 74-year-old female with a past medical history significant for alcohol abuse and nicotine dependence has been brought into the hospital for evaluation of weakness and multiple falls she did have elevated white blood positive concerning for UTI blood culture subsequently came back positive for E. coli. On today's evaluation that is 08/01/2024,the patient remains to be afebrile, patient is on room air not requiring supplemental oxygen and denies any shortness of breath no chest pain or cough.Patient denies having any nausea or vomiting, no abdominal pain and no diarrhea has been reported. Patient white count normalized to 8.89, creatinine 0.6 blood and urine with gram-negative Objective - Vital Signs Vital signs: Vital Signs Temp 98.1 F 08/01/24 07:00 Pulse 75 08/01/24 07:00 Resp 16 08/01/24 07:00 BP 97/64 08/01/24 07:00 Pulse Ox 97 08/01/24 07:00 FiO2 Intake & Output 07/31/24 08/01/24 08/01/24 18:59 06:59 18:59 Weight 56.699 kg Other: Voiding Method Bedside Commode # Voids 1 # Bowel Movements 0 - Exam GENERAL DESCRIPTION: An elderly female lying in bed in no distress RESPIRATORY SYSTEM: Unlabored breathing , decreased breath sounds at bases HEART: S1 S2 regular rate and rhythm , ABDOMEN: Soft , no tenderness EXTREMITIES: No edema feet - Labs CBC & Chem 7: 08/01/24 06:42 08/01/24 06:42 Labs: Abnormal Lab Results - Last 24 Hours (Table) 08/01/24 08/01/24 Range/Units 06:42 06:42 RBC 3.09 L (4.10-5.20) X 10*6/uL Hct 34.6 L (37.2-46.3) % MCV 112.0 H (80.0-97.0) FL MCH 40.1 H (27.0-32.0) pg Immature Gran # 0.07 H (0.00-0.04) X 10*3/uL Neutrophils # 7.88 H (1.80-7.70) X 10*3/uL Lymphocytes # 0.65 L (0.90-5.00) X 10*3/uL Eosinophils # 0.01 L (0.04-0.35) X 10*3/uL Macrocytosis (manual) 2+ A (None Seen) Sodium 130 L (135-145) mmol/L Chloride 92 L (96-109) mmol/L Anion Gap 14.50 H (4.00-12.00) mmol/L BUN/Creatinine Ratio 20.17 H (12.00-20.00) Ratio Glucose 135 H (70-110) mg/dL Calcium 8.6 L (8.7-10.3) mg/dL Microbiology - Last 24 Hours (Table) 07/31/24 05:55 Urine Culture - Preliminary Urine,Voided Gram Neg Bacilli 07/31/24 12:42 Blood Culture Gram Stain - Preliminary Blood Blood Culture - Preliminary Molecular ID Assessment and Plan (1) Bacteremia Current Visit: Yes Status: Acute Code(s): R78.81 - BACTEREMIA SNOMED Code(s): 2745572 (2) Leukocytosis Current Visit: Yes Status: Acute Code(s): D72.829 - ELEVATED WHITE BLOOD CELL COUNT, UNSPECIFIED SNOMED Code(s): 840357561 (3) UTI (urinary tract infection) Current Visit: Yes Status: Acute Code(s): N39.0 - URINARY TRACT INFECTION, SITE NOT SPECIFIED SNOMED Code(s): 95072784 Plan: 1patient presented hospitalized weakness multiple falls in this patient who did have a significantly positive elevated white count concerning for possible symptomatic UTI however the patient did not have significant urinary symptoms but no other obvious focus for this elevated white count 2patient did have a positive urine culture with gram-negative and that is growing E. coli source likely urinary 3we will check an ultrasound of the abdomen to make sure no evidence of any hydronephrosis or gallbladder disease as the patient also have elevated liver enzymes 4will treat with the Rocephin while waiting for the culture finalize Dictation was produced using [employer] dictation software. please excuse any grammatical, word or spelling errors. Time with Patient: Less than 30
--- NOTE | 2024-08-01 20:52 | P.PN ---
Subjective This is a pleasant 74 years old female with history of alcohol use disorder presents because of generalized weakness and fatigue for over 5 days. Also there was reports of falls at home. Patient on admission was found to have acute urinary tract infection started with ceftriaxone, infectious disease consult was obtained. Currently blood culture also coming back positive with E. coli. Patient awake alert no evidence of sepsis. she knows she is in the Hospital day. However she is kind of poor historian no chest pain or dyspnea. Denies any specific urinary symptoms denies depression or suicidal thoughts. Patient is a slow to move Patient is afebrile. Blood pressure is borderline. WBC is 8.8, hemoglobin 12.4, sodium 129 improved to 130. 7.55 on admission, ejection fraction 55 to 60% chest x-ray showing no acute process. CT of the brain is negative for acute process, EKG showing left ventricular hypertrophy. Blood cultures positive for E. coli. Urine culture is growing gram-negative bacilli Active Medications Generic Name Dose Route Start Last Admin Trade Name Freq PRN Reason Stop Dose Admin Hydrocodone Bitart/Acetaminophen 1 each 07/31/24 12:24 Hydrocodone/Apap 5-325mg 1 Each Tab PO Q6HR PRN Pain Atenolol 50 mg 08/01/24 09:00 08/01/24 08:23 Atenolol 50 Mg Tab PO 50 mg DAILY JAYLYN Administration Fluticasone Propionate 2 spray 07/31/24 12:25 Fluticasone Nasal 50mcg/[place] 16gm Btl EA NOSTRIL HS PRN Allergy Symptoms Fluticasone Propionate 2 spray 08/01/24 09:00 08/01/24 08:23 Fluticasone Nasal 50mcg/[place] 16gm Btl EA NOSTRIL 2 spray DAILY JAYLYN Administration Ceftriaxone Sodium 2 gm/ 50 mls @ 100 mls/hr 08/01/24 09:00 08/01/24 10:12 Sodium Chloride IVPB 100 mls/hr Q24HR JAYLYN Administration Lorazepam 0.5 mg 07/31/24 07:18 Lorazepam 0.5 Mg Tab PO Q4HR PRN [place] 4 To 5 Lorazepam 1 mg 07/31/24 07:18 Lorazepam 1 Mg Tab PO Q4HR PRN [place] 6 To 7 Lorazepam 2 mg 07/31/24 07:18 Lorazepam 1 Mg Tab PO Q2HR PRN [place] 10 or greater Lorazepam 2 mg 07/31/24 07:18 Lorazepam 1 Mg Tab PO Q3HR PRN [place] 8 To 9 Naloxone HCl 0.2 mg 07/31/24 07:11 Naloxone 0.4 Mg/Ml 1 Ml Vial IV Q2M PRN Opioid Reversal Pantoprazole Sodium 40 mg 08/01/24 07:30 08/01/24 06:11 Pantoprazole 40 Mg Tablet PO 40 mg [id number] JAYLYN Administration Paroxetine HCl 30 mg 08/01/24 09:00 08/01/24 08:23 Paroxetine 10 Mg Tab PO 30 mg DAILY JAYLYN Administration Objective - Vital Signs Vital signs: Vital Signs Temp 99.5 F 08/01/24 15:00 Pulse 75 08/01/24 15:00 Resp 17 08/01/24 15:00 BP 100/63 08/01/24 15:00 Pulse Ox 97 08/01/24 15:00 FiO2 Intake & Output 08/01/24 08/01/24 08/02/24 06:59 18:59 06:59 Other: Voiding Method Bedside Commode # Voids 1 1 # Bowel Movements 0 - Labs CBC & Chem 7: 08/01/24 06:42 08/01/24 06:42 Labs: Abnormal Lab Results - Last 24 Hours (Table) 08/01/24 08/01/24 Range/Units 06:42 06:42 RBC 3.09 L (4.10-5.20) X 10*6/uL Hct 34.6 L (37.2-46.3) % MCV 112.0 H (80.0-97.0) FL MCH 40.1 H (27.0-32.0) pg Immature Gran # 0.07 H (0.00-0.04) X 10*3/uL Neutrophils # 7.88 H (1.80-7.70) X 10*3/uL Lymphocytes # 0.65 L (0.90-5.00) X 10*3/uL Eosinophils # 0.01 L (0.04-0.35) X 10*3/uL Macrocytosis (manual) 2+ A (None Seen) Sodium 130 L (135-145) mmol/L Chloride 92 L (96-109) mmol/L Anion Gap 14.50 H (4.00-12.00) mmol/L BUN/Creatinine Ratio 20.17 H (12.00-20.00) Ratio Glucose 135 H (70-110) mg/dL Calcium 8.6 L (8.7-10.3) mg/dL Microbiology - Last 24 Hours (Table) 07/31/24 05:55 Urine Culture - Preliminary Urine,Voided Gram Neg Bacilli 07/31/24 12:42 Blood Culture Gram Stain - Preliminary Blood Blood Culture - Preliminary Molecular ID Assessment and Plan Assessment: Bacteremia with E. coli acute urinary tract infection toxic metabolic encephalopathy hyponatremia falll and generalized weakness alcohol use disorder at risk of alcohol withdrawal borderline low BP Plan: Continue with antibiotics ceftriaxone Follow-up culture results blood in the urine Continue with CIWA thiamine Start normal signs of a defibrillator but our Infectious disease consult Cardiology team recommended no stress test or cardiac cath currently. Patient also with no chest pain Monitor blood pressure and vitals Monitor sodium level Labs and medication were reviewed.. Continue same treatment. Continue with symptomatic treatment. Resume home medication. Monitor labs and vitals. DVT and GI prophylaxis. Further recommendations as per clinical course of the patient DVT prophylaxis: Subcutaneous heparin GI Prophylaxis: Pepcid PT/OT: Pending Prognosis is guarded
[2024-08-01] MEDS: HEPARIN SODIUM,PORCINE 5,000 UNIT/ML 1 ML VIAL SQ SCH (21:42)
[2024-08-01] MEDS: SODIUM CHLORIDE 0.9% 1,000 ML IV SCH (21:42)
--- NOTE | 2024-08-02 07:38 | US ---
EXAMINATION TYPE: US abdomen complete DATE OF EXAM: 08/02/2024 COMPARISON: NONE CLINICAL INDICATION: Female, 74 years old with history of E. coli bacteremia/UTI/elevated liver enzym es; bacteremia TECHNIQUE: Grayscale and color Doppler imaging of the abdomen was performed. FINDINGS: EXAM MEASUREMENTS: Liver Length: 15.2 cm Gallbladder Wall: 0.19 cm CBD: 0.68 cm, color Doppler imaging was utilized to isolate the common bile duct for measurement. Spleen: 8.7 cm Right Kidney: 10.9 x 5.8 x 4.8 cm Left Kidney: 10.4 x 5.3 x 5.4 cm EXT JS DEVELOPER NOTES: Pancreas: Portions seen appear wnl Liver: heterogeneous and difficult to penetrate compatible mild to moderate fatty liver. Gallbladder: layer of sludge seen Evidence for sonographic Dent's sign: No CBD: appears upper limits of normal for age Spleen: wnl Right Kidney: cystic area seen inf pole measuring 2.0 x 2.0 x 1.9cm . While well-defined. Left Kidney: wnl, No hydronephrosis, calculi or masses seen Upper IVC: wnl Abd Aorta: wnl IMPRESSION: 1. Some sludge present within the gallbladder 2. Mild to moderate fatty infiltration liver. 3. Right renal cyst [facility], , 08/02/2024 7:36 AM
[2024-08-02 09:07] LABS: Basophils # (A) 0.01 X 10*3/uL (0.00-0.10); Basophils % (A) 0.2 %; Eosinophils # (A) 0.01 X 10*3/uL (0.04-0.35); Eosinophils % (A) 0.2 %; HCT 32.6 % (37.2-46.3); HGB 11.5 g/dL (12.0-15.0); Lymphocytes # (A) 0.46 X 10*3/uL (0.90-5.00); Lymphocytes % (A) 8.8 %; MCH 39.8 pg (27.0-32.0); MCHC 35.3 g/dL (32.0-37.0); MCV 112.8 FL (80.0-97.0); Mean Platelet Volume 11.3 FL (9.5-12.2); Monocytes # (A) 0.36 X 10*3/uL (0.20-1.00); Monocytes % (A) 6.9 %; NRBC Per 100 WBC 0 X 10*3/uL (0.00-0.01); Platelet Count 163 X 10*3/uL (140-440); RBC 2.89 X 10*6/uL (4.10-5.20); RDW 12.6 % (11.5-14.5); WBC 5.24 X 10*3/uL (4.50-10.00)
[2024-08-02 09:23] LABS: ALT 26 U/L (8-44); AST 47 U/L (13-35); Albumin 2.7 g/dL (3.8-4.9); Albumin/Globulin Ratio 1.42 Ratio (1.60-3.17); Alkaline Phosphatase 95 U/L (41-126); Bilirubin, Conjugated 0.22 mg/dL (0.20-0.40); Bilirubin,Unconjugated 0.18 mg/dL (0.20-1.00); Blood Urea Nitrogen 8.7 mg/dL (9.0-27.0); Calcium 8.2 mg/dL (8.7-10.3); Carbon Dioxide 23.4 mmol/L (21.6-31.8); Chloride 94 mmol/L (96-109); Creatine Kinase 85 U/L (26-186); Globulin 1.9 g/dL (1.6-3.3); Glucose 97 mg/dL (70-110); Magnesium 1.3 mg/dL (1.5-2.4); Potassium 3.3 mmol/L (3.5-5.5); Sodium 130 mmol/L (135-145); Total Bilirubin 0.4 mg/dL (0.3-1.2); Total Protein 4.6 g/dL (6.2-8.2)
--- NOTE | 2024-08-02 14:38 | P.PN ---
Subjective Progress Note Date: 08/02/24 Principal diagnosis: Reason for follow-up is UTI and bacteremia Patient is a 74-year-old female with a past medical history significant for alcohol abuse and nicotine dependence has been brought into the hospital for evaluation of weakness and multiple falls she did have elevated white blood positive concerning for UTI blood culture subsequently came back positive for E. coli. On today's evaluation that is 08/02/2024, the patient continues to be afebrile, the patient is on room air and breathing comfortably, the Pt denies having any chest pain or cough, the patient denies having any abdominal pain no vomiting or any diarrhea has been reported by the nursing staff. Patient did have a white count of 5.24, creatinine 0.5 blood and urine with an E. coli sensitive pathogen abdominal ultrasound sludge within the gallbladder but no features of cholecystitis or hydronephrosis Objective - Vital Signs Vital signs: Vital Signs Temp 98.2 F 08/02/24 07:00 Pulse 80 08/02/24 07:00 Resp 14 08/02/24 07:00 BP 133/80 08/02/24 07:00 Pulse Ox 95 08/02/24 07:00 FiO2 Intake & Output 08/01/24 08/02/24 08/02/24 18:59 06:59 18:59 Other: Voiding Method Bedside Commode Bedside Commode # Voids 1 2 # Bowel Movements 0 - Exam GENERAL DESCRIPTION: An elderly female lying in bed in no distress RESPIRATORY SYSTEM: Unlabored breathing , decreased breath sounds at bases HEART: S1 S2 regular rate and rhythm , ABDOMEN: Soft , no tenderness EXTREMITIES: No edema feet - Labs CBC & Chem 7: 08/02/24 05:00 08/02/24 05:00 Labs: Abnormal Lab Results - Last 24 Hours (Table) 08/02/24 08/02/24 Range/Units 05:00 05:00 RBC 2.89 L (4.10-5.20) X 10*6/uL Hgb 11.5 L (12.0-15.0) g/dL Hct 32.6 L (37.2-46.3) % MCV 112.8 H (80.0-97.0) FL MCH 39.8 H (27.0-32.0) pg Immature Gran # 0.10 H (0.00-0.04) X 10*3/uL Lymphocytes # 0.46 L (0.90-5.00) X 10*3/uL Eosinophils # 0.01 L (0.04-0.35) X 10*3/uL Sodium 130 L (135-145) mmol/L Potassium 3.3 L (3.5-5.5) mmol/L Chloride 94 L (96-109) mmol/L Anion Gap 12.60 H (4.00-12.00) mmol/L BUN 8.7 L (9.0-27.0) mg/dL Creatinine 0.5 L (0.6-1.5) mg/dL Calcium 8.2 L (8.7-10.3) mg/dL Magnesium 1.3 L (1.5-2.4) mg/dL Unconjugated Bilirubin 0.18 L (0.20-1.00) mg/dL AST 47 H (13-35) U/L Total Protein 4.6 L (6.2-8.2) g/dL Albumin 2.7 L (3.8-4.9) g/dL Albumin/Globulin Ratio 1.42 L (1.60-3.17) Ratio Microbiology - Last 24 Hours (Table) 07/31/24 05:55 Urine Culture - Final Urine,Voided Escherichia coli 07/31/24 12:42 Blood Culture Gram Stain - Preliminary Blood Blood Culture - Preliminary Escherichia coli Molecular ID Assessment and Plan (1) Bacteremia Current Visit: Yes Status: Acute Code(s): R78.81 - BACTEREMIA SNOMED Code(s): 9330738 (2) Leukocytosis Current Visit: Yes Status: Acute Code(s): D72.829 - ELEVATED WHITE BLOOD CELL COUNT, UNSPECIFIED SNOMED Code(s): 668555394 (3) UTI (urinary tract infection) Current Visit: Yes Status: Acute Code(s): N39.0 - URINARY TRACT INFECTION, SITE NOT SPECIFIED SNOMED Code(s): 51618166 Plan: 1patient presented hospitalized weakness multiple falls in this patient who did have a significantly positive elevated white count concerning for possible symptomatic UTI however the patient did not have significant urinary symptoms but no other obvious focus for this elevated white count 2patient did have urine culture positive for E. coli blood cultures also growing E. coli 3 ultrasound of the abdomen did not mention any features of cholecystitis or hydronephrosis 4 patient will be treated with Rocephin while inpatient transition to oral antibiotic on discharge Dictation was produced using [employer] dictation software. please excuse any grammatical, word or spelling errors. Time with Patient: Less than 30
[2024-08-02] MEDS ORDERED: Magnesium Replacement Protocol 1 EACH MISC MISCELLANE PRN (18:25)
[2024-08-02] MEDS ORDERED: Potassium Replacement Protocol 1 EACH MISC MISCELLANE PRN (18:25)
--- NOTE | 2024-08-02 18:29 | P.PN ---
Subjective This is a pleasant 74 years old female with history of alcohol use disorder presents because of generalized weakness and fatigue for over 5 days. Also there was reports of falls at home. Patient on admission was found to have acute urinary tract infection started with ceftriaxone, infectious disease consult was obtained. Currently blood culture also coming back positive with E. coli. Patient awake alert no evidence of sepsis. she knows she is in the Hospital day. However she is kind of poor historian no chest pain or dyspnea. Denies any specific urinary symptoms denies depression or suicidal thoughts. Patient is a slow to move Patient is afebrile. Blood pressure is borderline. WBC is 8.8, hemoglobin 12.4, sodium 129 improved to 130. 7.55 on admission, ejection fraction 55 to 60% chest x-ray showing no acute process. CT of the brain is negative for acute process, EKG showing left ventricular hypertrophy. Blood cultures positive for E. coli. Urine culture is growing gram-negative bacilli 08/02 Patient proving slowly and gradually She is eating little bit No chest pain or abdominal pain Generally weak Patient remains on ceftriaxone for bacteremia and UTI. Discharge antibiotic as per ID team Blood pressure improved we will lower Normal Saline 75 mL/h Replace potassium magnesium per protocol Review of systems CONSTITUTIONAL: No fever, no malaise, no fatigue. HEENT: No recent visual problems or hearing problems. Denied any sore throat. CARDIOVASCULAR: No orthopnea, PND, no palpitations, no syncope. NEUROLOGICAL: No headaches, no weakness, no numbness. HEMATOLOGICAL: Denies any bleeding or petechiae. GENITOURINARY: Denies any burning micturition, frequency, or urgency. MUSCULOSKELETAL/RHEUMATOLOGICAL: Denies any joint pain, swelling, or any muscle pain. Active Medications Generic Name Dose Route Start Last Admin Trade Name Freq PRN Reason Stop Dose Admin Hydrocodone Bitart/Acetaminophen 1 each 07/31/24 12:24 Hydrocodone/Apap 5-325mg 1 Each Tab PO Q6HR PRN Pain Atenolol 50 mg 08/01/24 09:00 08/02/24 08:17 Atenolol 50 Mg Tab PO 50 mg DAILY JAYLYN Administration Fluticasone Propionate 2 spray 07/31/24 12:25 Fluticasone Nasal 50mcg/[place] 16gm Btl EA NOSTRIL HS PRN Allergy Symptoms Fluticasone Propionate 2 spray 08/01/24 09:00 08/02/24 08:17 Fluticasone Nasal 50mcg/[place] 16gm Btl EA NOSTRIL 2 spray DAILY JAYLYN Administration Heparin Sodium (Porcine) 5,000 unit 08/01/24 21:00 08/02/24 08:16 Heparin Sodium,Porcine 5,000 Unit/Ml 1 Ml Vial SQ 5,000 unit Q12HR JAYLYN Administration Ceftriaxone Sodium 2 gm/ 50 mls @ 100 mls/hr 08/01/24 09:00 08/02/24 08:17 Sodium Chloride IVPB 100 mls/hr Q24HR JAYLYN Administration Magnesium Sulfate/Dextrose 1 100 mls @ 100 mls/hr 08/02/24 18:30 gm/ IV Solution IVPB 08/02/24 20:29 Q1H JAYLYN Sodium Chloride 1,000 mls @ 75 mls/hr 08/02/24 18:30 Saline 0.9% IV .[id number] JAYLYN Lorazepam 0.5 mg 07/31/24 07:18 Lorazepam 0.5 Mg Tab PO Q4HR PRN [place] 4 To 5 Lorazepam 1 mg 07/31/24 07:18 Lorazepam 1 Mg Tab PO Q4HR PRN [place] 6 To 7 Lorazepam 2 mg 07/31/24 07:18 Lorazepam 1 Mg Tab PO Q2HR PRN [place] 10 or greater Lorazepam 2 mg 07/31/24 07:18 Lorazepam 1 Mg Tab PO Q3HR PRN [place] 8 To 9 Miscellaneous Information 1 each 08/02/24 18:25 Potassium Replacement Protocol 1 Each Mis MISCELLANE DAILY PRN Per Protocol Protocol Miscellaneous Information 1 each 08/02/24 18:25 Magnesium Replacement Protocol 1 Each Misc MISCELLANE DAILY PRN Per Protocol Protocol Naloxone HCl 0.2 mg 07/31/24 07:11 Naloxone 0.4 Mg/Ml 1 Ml Vial IV Q2M PRN Opioid Reversal Pantoprazole Sodium 40 mg 08/01/24 07:30 08/02/24 06:07 Pantoprazole 40 Mg Tablet PO 40 mg [id number] JAYLYN Administration Paroxetine HCl 30 mg 08/01/24 09:00 08/02/24 08:17 Paroxetine 10 Mg Tab PO 30 mg DAILY JAYLYN Administration Objective - Vital Signs Vital signs: Vital Signs Temp 98.2 F 08/02/24 07:00 Pulse 80 08/02/24 07:00 Resp 14 08/02/24 07:00 BP 133/80 08/02/24 07:00 Pulse Ox 95 08/02/24 07:00 FiO2 Intake & Output 08/01/24 08/02/24 08/02/24 18:59 06:59 18:59 Other: Voiding Method Bedside Commode Bedside Commode # Voids 1 2 # Bowel Movements 0 - Exam Bacteremia with E. coli acute urinary tract infection hyponatremia falll and generalized weakness alcohol use disorder at risk of alcohol withdrawal - Labs CBC & Chem 7: 08/02/24 05:00 08/02/24 05:00 Labs: Abnormal Lab Results - Last 24 Hours (Table) 08/02/24 08/02/24 Range/Units 05:00 05:00 RBC 2.89 L (4.10-5.20) X 10*6/uL Hgb 11.5 L (12.0-15.0) g/dL Hct 32.6 L (37.2-46.3) % MCV 112.8 H (80.0-97.0) FL MCH 39.8 H (27.0-32.0) pg Immature Gran # 0.10 H (0.00-0.04) X 10*3/uL Lymphocytes # 0.46 L (0.90-5.00) X 10*3/uL Eosinophils # 0.01 L (0.04-0.35) X 10*3/uL Sodium 130 L (135-145) mmol/L Potassium 3.3 L (3.5-5.5) mmol/L Chloride 94 L (96-109) mmol/L Anion Gap 12.60 H (4.00-12.00) mmol/L BUN 8.7 L (9.0-27.0) mg/dL Creatinine 0.5 L (0.6-1.5) mg/dL Calcium 8.2 L (8.7-10.3) mg/dL Magnesium 1.3 L (1.5-2.4) mg/dL Unconjugated Bilirubin 0.18 L (0.20-1.00) mg/dL AST 47 H (13-35) U/L Total Protein 4.6 L (6.2-8.2) g/dL Albumin 2.7 L (3.8-4.9) g/dL Albumin/Globulin Ratio 1.42 L (1.60-3.17) Ratio Microbiology - Last 24 Hours (Table) 07/31/24 05:55 Urine Culture - Final Urine,Voided Escherichia coli 07/31/24 12:42 Blood Culture Gram Stain - Preliminary Blood Blood Culture - Preliminary Escherichia coli Molecular ID Assessment and Plan Assessment: Bacteremia with E. coli acute urinary tract infection toxic metabolic encephalopathy hyponatremia falll and generalized weakness alcohol use disorder at risk of alcohol withdrawal borderline low BP Plan: Continue with antibiotics ceftriaxone Follow-up culture results blood in the urine Continue with CIWA thiamine Start normal signs of a defibrillator but our Infectious disease consult Cardiology team recommended no stress test or cardiac cath currently. Patient also with no chest pain Monitor blood pressure and vitals Monitor sodium level Labs and medication were reviewed.. Continue same treatment. Continue with symptomatic treatment. Resume home medication. Monitor labs and vitals. DVT and GI prophylaxis. Further recommendations as per clinical course of the patient DVT prophylaxis: Subcutaneous heparin GI Prophylaxis: Pepcid PT/OT: Pending Prognosis is guarded
[2024-08-02] MEDS: MAGNESIUM SULFATE-D5W PMX 1 GM in DEXTROSE/WATER 1 100ML.BAG IVPB SCH (20:15)
[2024-08-02] MEDS: SODIUM CHLORIDE 0.9% 1,000 ML IV SCH (20:15)
[2024-08-03] MEDS: POTASSIUM CHLORIDE ER 20 MEQ TAB.ER PO SCH ×3 (01:04→11:28)
--- NOTE | 2024-08-03 14:52 | P.PN ---
Subjective Progress Note Date: 08/03/24 Principal diagnosis: Reason for follow-up is UTI and bacteremia Patient is a 74-year-old female with a past medical history significant for alcohol abuse and nicotine dependence has been brought into the hospital for evaluation of weakness and multiple falls she did have elevated white blood positive concerning for UTI blood culture subsequently came back positive for E. coli. On today's evaluation that is 08/03/2024, Patient is afebrile patient is currently on room air and breathing comfortably no distress patient sleepy no nausea vomiting diarrhea and the changes reported. Patient did have a potassium of 3.3 magnesium is 1.8 no CBC was done today blood and urine with an E. coli sensitive pathogen Objective - Vital Signs Vital signs: Vital Signs Temp 98.0 F 08/03/24 07:30 Pulse 73 08/03/24 07:30 Resp 16 08/03/24 07:30 BP 143/89 08/03/24 07:30 Pulse Ox 97 08/03/24 07:30 FiO2 Intake & Output 08/02/24 08/03/24 08/03/24 18:59 06:59 18:59 Intake Total 360 240 Balance 360 240 Intake: Oral 360 240 Other: Voiding Method Bedside Commode Bedside Commode Bedside Commode # Voids 1 3 - Exam GENERAL DESCRIPTION: An elderly female lying in bed in no distress RESPIRATORY SYSTEM: Unlabored breathing , decreased breath sounds at bases HEART: S1 S2 regular rate and rhythm , ABDOMEN: Soft , no tenderness EXTREMITIES: No edema feet - Labs CBC & Chem 7: 08/02/24 05:00 08/03/24 04:13 Labs: Abnormal Lab Results - Last 24 Hours (Table) 08/03/24 Range/Units 04:13 Potassium 3.3 L (3.5-5.1) mmol/L Microbiology - Last 24 Hours (Table) 07/31/24 12:42 Blood Culture Gram Stain - Final Blood Blood Culture - Final Escherichia coli Molecular ID Assessment and Plan (1) Bacteremia Current Visit: Yes Status: Acute Code(s): R78.81 - BACTEREMIA SNOMED Code(s): 1019301 (2) Leukocytosis Current Visit: Yes Status: Acute Code(s): D72.829 - ELEVATED WHITE BLOOD CELL COUNT, UNSPECIFIED SNOMED Code(s): 096692929 (3) UTI (urinary tract infection) Current Visit: Yes Status: Acute Code(s): N39.0 - URINARY TRACT INFECTION, SITE NOT SPECIFIED SNOMED Code(s): 10172859 Plan: 1patient presented hospitalized weakness multiple falls in this patient who did have a significantly positive elevated white count concerning for possible symptomatic UTI however the patient did not have significant urinary symptoms but no other obvious focus for this elevated white count 2patient did have urine culture positive for E. coli blood cultures also growing E. coli 3 ultrasound of the abdomen did not mention any features of cholecystitis or hydronephrosis 4 patient seem to have shown clinical improvement continue Rocephin while in patient finishing therapy with oral Cipro x 10 days on discharge Dictation was produced using [employer] dictation software. please excuse any grammatical, word or spelling errors. Time with Patient: Less than 30
--- NOTE | 2024-08-03 19:29 | P.PN ---
Subjective This is a pleasant 74 years old female with history of alcohol use disorder presents because of generalized weakness and fatigue for over 5 days. Also there was reports of falls at home. Patient on admission was found to have acute urinary tract infection started with ceftriaxone, infectious disease consult was obtained. Currently blood culture also coming back positive with E. coli. Patient awake alert no evidence of sepsis. she knows she is in the Hospital day. However she is kind of poor historian no chest pain or dyspnea. Denies any specific urinary symptoms denies depression or suicidal thoughts. Patient is a slow to move Patient is afebrile. Blood pressure is borderline. WBC is 8.8, hemoglobin 12.4, sodium 129 improved to 130. 7.55 on admission, ejection fraction 55 to 60% chest x-ray showing no acute process. CT of the brain is negative for acute process, EKG showing left ventricular hypertrophy. Blood cultures positive for E. coli. Urine culture is growing gram-negative bacilli 08/02 Patient proving slowly and gradually She is eating little bit No chest pain or abdominal pain Generally weak Patient remains on ceftriaxone for bacteremia and UTI. Discharge antibiotic as per ID team Blood pressure improved we will lower Normal Saline 75 mL/h Replace potassium magnesium per protocol 08/03 Patient is up in bed, she has generalized weakness slightly looks better today, her mentation looks improving but she is slow to respond but she answers most of the questions appropriately. Denies respiratory complaint like chest pain. She is breathing quietly. She started tolerating diet Blood pressure improved today for IV fluid of normal saline was discontinued Low potassium magnesium replaced Patient declined physical therapy before. Now she feels better hope she can participate tomorrow. Daughter wants her to go to rehab unit upon discharge. Patient encouraged to participate with therapy. We will reassess tomorrow Her infection is also improving and currently she is on ceftriaxone with a plan to be discharged on 10 days of Cipro per ID team for her bacteremia and UTI secondary to E. coli infection which is sensitive. Objective - Vital Signs Vital signs: Vital Signs Temp 97.9 F 08/03/24 15:00 Pulse 71 08/03/24 15:00 Resp 16 08/03/24 15:00 BP 127/84 08/03/24 15:00 Pulse Ox 98 08/03/24 15:00 FiO2 Intake & Output 05/25/25 05/26/25 05/26/25 18:59 06:59 18:59 Intake Total 360 480 Balance 360 480 Intake: Oral 360 480 Other: Voiding Method Bedside Commode Bedside Commode Bedside Commode # Voids 1 3 3 # Bowel Movements 2 - Exam Bacteremia with E. coli acute urinary tract infection hyponatremia falll and generalized weakness alcohol use disorder at risk of alcohol withdrawal - Labs CBC & Chem 7: 08/02/24 05:00 08/03/24 15:29 Labs: Abnormal Lab Results - Last 24 Hours (Table) 08/03/24 Range/Units 04:13 Potassium 3.3 L (3.5-5.1) mmol/L Microbiology - Last 24 Hours (Table) 07/31/24 12:42 Blood Culture Gram Stain - Final Blood Blood Culture - Final Escherichia coli Molecular ID Assessment and Plan Assessment: Bacteremia with E. coli acute urinary tract infection toxic metabolic encephalopathy hyponatremia falll and generalized weakness alcohol use disorder at risk of alcohol withdrawal borderline low BP Plan: Continue with antibiotics ceftriaxone Follow-up culture results blood in the urine Continue with CIWA thiamine Start normal signs of a defibrillator but our Infectious disease consult Cardiology team recommended no stress test or cardiac cath currently. Patient also with no chest pain Monitor blood pressure and vitals Monitor sodium level Labs and medication were reviewed.. Continue same treatment. Continue with symptomatic treatment. Resume home medication. Monitor labs and vitals. DVT and GI prophylaxis. Further recommendations as per clinical course of the patient DVT prophylaxis: Subcutaneous heparin GI Prophylaxis: Pepcid PT/OT: Pending Prognosis is guarded
[2024-08-03] MEDS: MAGNESIUM OXIDE 400 MG TAB PO SCH (20:05)
[2024-08-04 08:19] LABS: Basophils # (A) 0.02 X 10*3/uL (0.00-0.10); Basophils % (A) 0.4 %; Eosinophils # (A) 0.02 X 10*3/uL (0.04-0.35); Eosinophils % (A) 0.4 %; HCT 32.6 % (37.2-46.3); HGB 11.2 g/dL (12.0-15.0); Lymphocytes # (A) 1.28 X 10*3/uL (0.90-5.00); MCHC 34.4 g/dL (32.0-37.0); MCV 116.4 FL (80.0-97.0); Mean Platelet Volume 11.8 FL (9.5-12.2); Monocytes # (A) 0.57 X 10*3/uL (0.20-1.00); Monocytes % (A) 11.6 %; NRBC Per 100 WBC 0 X 10*3/uL (0.00-0.01); Neutrophils # (A) 2.98 X 10*3/uL (1.80-7.70); Neutrophils % (A) 60.6 %; Platelet Count 129 X 10*3/uL (140-440); WBC 4.92 X 10*3/uL (4.50-10.00)
[2024-08-04 08:20] LABS: Blood Urea Nitrogen 5.4 mg/dL (9.0-27.0); Carbon Dioxide 21.1 mmol/L (21.6-31.8); Chloride 104 mmol/L (96-109); Glucose 96 mg/dL (70-110); Potassium 4.9 mmol/L (3.5-5.5); Sodium 136 mmol/L (135-145)
[2024-08-04 08:21] LABS: Calcium 8.1 mg/dL (8.7-10.3)
[2024-08-04 09:17] LABS: HCT 31.6 % (37.2-46.3); HGB 11.4 g/dL (12.0-15.0); Immature Platelet Fraction 5.9 % (1.1-6.1); MCH 40.6 pg (27.0-32.0); MCHC 36.1 g/dL (32.0-37.0); MCV 112.5 fL (80.0-97.0); Mean Platelet Volume 11.1 fL (9.5-12.2); Platelet Count 141 10*3/uL (140-440); RBC 2.81 10*6/uL (4.10-5.20); RDW 12.7 % (11.5-14.5)
[2024-08-04 09:28] LABS: African American GFR (CKD) >90 (>60 ml/min/1.73 sqM); Anion Gap 4 mmol/L; Blood Urea Nitrogen 5 mg/dL (7-17); Calcium 8.3 mg/dL (8.4-10.2); Carbon Dioxide 25 mmol/L (22-30); Chloride 104 mmol/L (98-107); Glucose 102 mg/dL (74-99); Non-African American GFR(CKD) >90 (>60 ml/min/1.73 sqM); Sodium 133 mmol/L (137-145)
--- NOTE | 2024-08-04 13:21 | P.PN ---
Subjective Progress Note Date: 08/04/24 Principal diagnosis: Reason for follow-up is UTI and bacteremia Patient is a 74-year-old female with a past medical history significant for alcohol abuse and nicotine dependence has been brought into the hospital for evaluation of weakness and multiple falls she did have elevated white blood positive concerning for UTI blood culture subsequently came back positive for E. coli. On today's evaluation that is 08/04/2024, patient has been afebrile, patient is breathing comfortably and is currently on room air, patient denies having any chest pain and cough, patient denies nausea vomiting or diarrhea and no abdominal pain, still complaining of feeling weak no energy. The patient white count is 4.80, creatinine 0.42 Objective - Vital Signs Vital signs: Vital Signs Temp 97.6 F 08/04/24 07:00 Pulse 81 08/04/24 07:00 Resp 17 08/04/24 07:00 BP 137/88 08/04/24 07:00 Pulse Ox 99 08/04/24 07:00 FiO2 Intake & Output 08/03/24 08/04/24 08/04/24 18:59 06:59 18:59 Intake Total 480 Balance 480 Intake: Oral 480 Other: Voiding Method Bedside Commode Bedside Commode # Voids 1 1 # Bowel Movements 1 - Exam GENERAL DESCRIPTION: An elderly female lying in bed in no distress RESPIRATORY SYSTEM: Unlabored breathing , decreased breath sounds at bases HEART: S1 S2 regular rate and rhythm , ABDOMEN: Soft , no tenderness EXTREMITIES: No edema feet - Labs CBC & Chem 7: 08/04/24 09:03 08/04/24 09:03 Labs: Abnormal Lab Results - Last 24 Hours (Table) 08/04/24 08/04/24 08/04/24 Range/Units 05:28 05:28 09:03 RBC 2.80 L 2.81 L (4.10-5.20) X 10*6/uL Hgb 11.2 L 11.4 L (12.0-15.0) g/dL Hct 32.6 L 31.6 L (37.2-46.3) % MCV 116.4 H 112.5 H (80.0-97.0) FL MCH 40.0 H 40.6 H (27.0-32.0) pg Plt Count 129 L (140-440) X 10*3/uL Immature Gran # 0.05 H (0.00-0.04) X 10*3/uL Eosinophils # 0.02 L (0.04-0.35) X 10*3/uL Sodium (137-145) mmol/L Carbon Dioxide 21.1 L (21.6-31.8) mmol/L BUN 5.4 L (9.0-27.0) mg/dL Creatinine 0.4 L (0.6-1.5) mg/dL Glucose (74-99) mg/dL Calcium 8.1 L (8.7-10.3) mg/dL 08/04/24 Range/Units 09:03 RBC (4.10-5.20) X 10*6/uL Hgb (12.0-15.0) g/dL Hct (37.2-46.3) % MCV (80.0-97.0) FL MCH (27.0-32.0) pg Plt Count (140-440) X 10*3/uL Immature Gran # (0.00-0.04) X 10*3/uL Eosinophils # (0.04-0.35) X 10*3/uL Sodium 133 L (137-145) mmol/L Carbon Dioxide (21.6-31.8) mmol/L BUN 5 L (9.0-27.0) mg/dL Creatinine 0.42 L (0.6-1.5) mg/dL Glucose 102 H (74-99) mg/dL Calcium 8.3 L (8.7-10.3) mg/dL Microbiology - Last 24 Hours (Table) 07/31/24 12:42 Blood Culture Gram Stain - Final Blood Blood Culture - Final Escherichia coli Molecular ID Assessment and Plan (1) Bacteremia Current Visit: Yes Status: Acute Code(s): R78.81 - BACTEREMIA SNOMED Code(s): 7980575 (2) Leukocytosis Current Visit: Yes Status: Acute Code(s): D72.829 - ELEVATED WHITE BLOOD JULIA L COUNT, UNSPECIFIED SNOMED Code(s): 633820234 (3) UTI (urinary tract infection) Current Visit: Yes Status: Acute Code(s): N39.0 - URINARY TRACT INFECTION, SITE NOT SPECIFIED SNOMED Code(s): 45556862 Plan: 1patient presented hospitalized weakness multiple falls in this patient who did have a significantly positive elevated white count concerning for possible symptomatic UTI however the patient did not have significant urinary symptoms but no other obvious focus for this elevated white count 2patient did have urine culture positive for E. coli blood cultures also growing E. coli 3 ultrasound of the abdomen did not mention any features of cholecystitis or hydronephrosis 4 patient slowly clinical improving afebrile white count is normal 5patient is currently on Rocephin 2 g to continue while inpatient finishing therapy with oral Cipro x 10 days on discharge Dictation was produced using [employer] software. please excuse any grammatical, word or spelling errors.
--- NOTE | 2024-08-04 13:42 | P.DS ---
Providers Date of admission: 08/04/24 08:50 Attending physician: Rick Umanzor MD Consults: 07/31/24 07:11 Consult Physician Urgent Consulting Provider: [facility] Consult Reason/Comments: abn ekg Do you want consulting provider notified?: Yes 07/31/24 12:24 Consult Physician Routine Consulting Provider: Sarai Parker Consult Reason/Comments: uti Do you want consulting provider notified?: Yes Primary care physician: Becky Jeronimo Hospital Course: Diagnoses: Bacteremia with E. coli acute urinary tract infection toxic metabolic encephalopathy hyponatremia falll and generalized weakness alcohol use disorder at risk of alcohol withdrawal borderline low BP Hospital course: This is a pleasant 74 years old female with history of alcohol use disorder presents because of generalized weakness and fatigue for over 5 days. Also there was reports of falls at home. Patient was evaluated by infectious disease team and metal fabrication supervisor. She was found to have acute urinary tract infection and bacteremia secondary to UTI E. coli she was treated with IV antibiotics ceftriaxone and switch later on oral antibiotics of Cipro X 10 days per recommendation of ID team Patient also have hy hypovolemic hyponatremia and hypotension she received IV fluids and her blood pressure improved significantly. BP on open discharge 137/88. Sodium 133. Other than that she is hemodynamically stable and afebrile and other labs stable. Patient denies any other new complaint today and she is agreeable to be discharged In the beginning patient was refusing rehab because she was hypotensive after improvement in his blood pressure with IV fluid today she is agreeable to go to ECF for rehab for further strengthening exercises. Patient was cleared by all consultants including ID team and metal fabrication supervisor patient also been treated for alcohol withdrawal, currently calm with no signs symptoms of withdrawal. Patient advised to stay away from alcohol. Problems and management plan were discussed with the patient and he verbalized understanding and acceptance Patient was found stable and can be discharged to ECF for PENELOPE in guarded prognosis however he needs follow-up as an outpatient. Patient was instructed to follow up with PCP within one week and patient agrees Physical exam -Gen: patient is a AAOx3, no distress. Generally weak CVS: S1-S2, RRR, no murmur Lungs: B/L CTA, no wheezing Abdomen: soft, no distention, no tenderness, positive bowel sounds Extremity: no leg edema or induration Time spent more than 35 minutes Patient Condition at Discharge: Stable Plan - Discharge Summary New Discharge Prescriptions: No Action Fluticasone Nasal [place] [Flonase Nasal [place]] 2 spr EA NOSTRIL DAILY atenoloL [Tenormin] 50 mg PO DAILY PARoxetine HCL [Paxil] 30 mg PO DAILY Fluticasone Nasal [place] [Flonase Nasal [place]] 2 spr EA NOSTRIL HS PRN PRN Reason: Allergy Symptoms Discharge Medication List Fluticasone Nasal [place] [Flonase Nasal [place]] 2 spr EA NOSTRIL DAILY 07/31/24 [History] Fluticasone Nasal [place] [Flonase Nasal [place]] 2 spr EA NOSTRIL HS PRN 07/31/24 [History] PARoxetine HCL [Paxil] 30 mg PO DAILY 07/31/24 [History] atenoloL [Tenormin] 50 mg PO DAILY 07/31/24 [History] Ciprofloxacin HCl [Cipro] 500 mg PO Q12HR 10 Days #20 tab 08/04/24 [Rx] Magnesium Oxide [Mag-Ox] 400 mg PO TID 3 Days #15 tab 08/04/24 [Rx] Pantoprazole [Protonix] 40 mg PO AC-BRKFST 10 Days #10 tab 08/04/24 [Rx] Follow up Appointment(s)/Referral(s): Shad Etienne MD [STAFF PHYSICIAN] - 1 Week None,Stated [REFERRING] - 1-2 days Sarai Parker MD [STAFF PHYSICIAN] - 1 Week
--- NOTE | 2024-08-06 13:57 | P.PN ---
Subjective Progress Note Date: 08/05/24 Principal diagnosis: Reason for follow-up is UTI and bacteremia Patient is a 74-year-old female with a past medical history significant for alcohol abuse and nicotine dependence has been brought into the hospital for evaluation of weakness and multiple falls she did have elevated white blood positive concerning for UTI blood culture subsequently came back positive for E. coli. On today's evaluation that is 08/05/2024, Patient is afebrile this morning patient denies having any chest pain shortness of breath or cough, the patient is currently on room air, patient denies any abdominal pain no diarrhea no nausea no vomiting has been complaining of mostly weakness. No new lab has been obtained today Objective - Vital Signs Vital signs: Vital Signs Temp 98.6 F 08/05/24 07:00 Pulse 75 08/05/24 07:00 Resp 15 08/05/24 07:00 BP 132/90 08/05/24 07:00 Pulse Ox 97 08/05/24 07:00 FiO2 Intake & Output 08/04/24 08/05/24 08/05/24 18:59 06:59 18:59 Other: Voiding Method Bedside Commode Bedside Commode # Voids 3 2 - Exam GENERAL DESCRIPTION: An elderly female lying in bed in no distress RESPIRATORY SYSTEM: Unlabored breathing , decreased breath sounds at bases HEART: S1 S2 regular rate and rhythm , ABDOMEN: Soft , no tenderness EXTREMITIES: No edema feet - Labs CBC & Chem 7: 08/04/24 09:03 08/04/24 09:03 Assessment and Plan (1) Bacteremia Current Visit: Yes Status: Acute Code(s): R78.81 - BACTEREMIA SNOMED Code(s): 5725467 (2) Leukocytosis Current Visit: Yes Status: Acute Code(s): D72.829 - ELEVATED WHITE BLOOD CELL COUNT, UNSPECIFIED SNOMED Code(s): 650146701 (3) UTI (urinary tract infection) Current Visit: Yes Status: Acute Code(s): N39.0 - URINARY TRACT INFECTION, SITE NOT SPECIFIED SNOMED Code(s): 75088993 Plan: 1patient presented hospitalized weakness multiple falls in this patient who did have a significantly positive elevated white count concerning for possible symptomatic UTI however the patient did not have significant urinary symptoms but no other obvious focus for this elevated white count 2patient did have urine culture positive for E. coli blood cultures also growing E. coli 3 ultrasound of the abdomen did not mention any features of cholecystitis or hydronephrosis 4 patient slowly clinical improving afebrile white count is normal, to continue with Rocephin while inpatient awaiting placement Dictation was produced using [employer] dictation software. please excuse any grammatical, word or spelling errors. Time with Patient: Less than 30
--- NOTE | 2024-08-06 13:58 | P.PN ---
Subjective Progress Note Date: 08/06/24 Principal diagnosis: Reason for follow-up is UTI and bacteremia Patient is a 74-year-old female with a past medical history significant for alcohol abuse and nicotine dependence has been brought into the hospital for evaluation of weakness and multiple falls she did have elevated white blood positive concerning for UTI blood culture subsequently came back positive for E. coli. On today's evaluation that is 08/06/2024,the patient denies any fever or any chills, patient is breathing comfortably on room air, the patient denies chest pain shortness of breath and no significant cough, patient denies abdominal pain, no nausea vomiting or diarrhea. No new labs has been obtained today Objective - Vital Signs Vital signs: Vital Signs Temp 98.0 F 08/06/24 07:45 Pulse 75 08/06/24 07:45 Resp 16 08/06/24 07:45 BP 121/73 08/06/24 07:45 Pulse Ox 98 08/06/24 07:45 FiO2 Intake & Output 08/05/24 08/06/24 08/06/24 18:59 06:59 18:59 Intake Total 240 Balance 240 Intake: Oral 240 Other: Voiding Method Bedside Commode Bedside Commode # Voids 2 3 1 - Exam GENERAL DESCRIPTION: An elderly female lying in bed in no distress RESPIRATORY SYSTEM: Unlabored breathing , decreased breath sounds at bases HEART: S1 S2 regular rate and rhythm , ABDOMEN: Soft , no tenderness EXTREMITIES: No edema feet - Labs CBC & Chem 7: 08/04/24 09:03 08/04/24 09:03 Assessment and Plan (1) Bacteremia Current Visit: Yes Status: Acute Code(s): R78.81 - BACTEREMIA SNOMED Code(s): 8520336 (2) Leukocytosis Current Visit: Yes Status: Acute Code(s): D72.829 - ELEVATED WHITE BLOOD CELL COUNT, UNSPECIFIED SNOMED Code(s): 553653960 (3) UTI (urinary tract infection) Current Visit: Yes Status: Acute Code(s): N39.0 - URINARY TRACT INFECTION, SITE NOT SPECIFIED SNOMED Code(s): 23894473 Plan: 1patient presented hospitalized weakness multiple falls in this patient who did have a significantly positive elevated white count concerning for possible symptomatic UTI 2patient did have urine culture positive for E. coli blood cultures also growing E. coli 3 ultrasound of the abdomen did not mention any features of cholecystitis or hydronephrosis 4 patient slowly clinical improving afebrile white count is normal, patient is currently being treated with Rocephin while inpatient finishing therapy with oral Cipro on discharge currently waiting for placement Dictation was produced using [employer] dictation software. please excuse any grammatical, word or spelling errors. Time with Patient: Less than 30
--- NOTE | 2024-08-06 14:40 | CDI ---
Documentation Clarification Form Date: 08/06/2024 02:04:17 PM From: Hetal Philip RN CCDS Phone: [phone] Admit Date: 08/04/2024 08:50:00 AM Patient Name: Brittany Sheppard Visit Number: [id number] Discharge Date: ATTENTION: The Clinical Documentation Specialists (CDI) and [facility] Coding Staff appreciate your assistance in clarifying documentation. Please respond to the clarification below the line at the bottom and electronically sign. The CDI & [facility] Coding staff will review the response and follow-up if needed. Please note: Queries are made part of the Legal Health Record. If you have any questions, please contact the author of this message via ITS. Doctor: Rick E Sheet There is documentation of bacteremia Bacteremia, 08/04, . Bacteremia is considered a lab finding. Additional clarification regarding bacteremia is requested. Patient history/risk factors: 74 year old female presents to the ED with weakness and fatigue for over five days. Medical History: Alcohol use disorder and nicotine dependence, medical record 07/31. Clinical Indicators: WBC, 523: 13.41 Left Shift, 07/31: 11.02 Blood Culture, 07/31: Esherichia coli Urine Culture, 07/31: Escherichia coli Lactic acid, 07/31: 4.3 Consult ID, 07/31: Patient did have urine culture positive for E coli blood cultures also growing E coli. HP, 07/31: Rule out urinary tract infection with Sepsis Treatment: 08/01 08/02 0.9ns 100cc/hr IV ; 08/02 08/03 0.9ns 75cc/hr IV Antibiotics: 07/31 Ceftriaxone IVPB x 1; 08/01 Ceftriaxone IVPB Q24H Please provide additional clarification regarding the etiology/cause and/or clinical significance of the bacteremia: [ x] Bacteremia is related to sepsis and uti [ ] Bacteremia is due to infectious process uti [ ] Other, please specify [ ] Unable to determine (Template Last Revised: May 2020) MTDD
[2024-08-06] MEDS: HYDROcodone/APAP 5-325MG 1 EACH TAB PO PRN (20:10)
--- NOTE | 2024-08-07 03:55 | P.PN ---
Subjective This is a pleasant 74 years old female with history of alcohol use disorder presents because of generalized weakness and fatigue for over 5 days. Also there was reports of falls at home. Patient on admission was found to have acute urinary tract infection started with ceftriaxone, infectious disease consult was obtained. Currently blood culture also coming back positive with E. coli. Patient awake alert no evidence of sepsis. she knows she is in the Hospital day. However she is kind of poor historian no chest pain or dyspnea. Denies any specific urinary symptoms denies depression or suicidal thoughts. Patient is a slow to move Patient is afebrile. Blood pressure is borderline. WBC is 8.8, hemoglobin 12.4, sodium 129 improved to 130. 7.55 on admission, ejection fraction 55 to 60% chest x-ray showing no acute process. CT of the brain is negative for acute process, EKG showing left ventricular hypertrophy. Blood cultures positive for E. coli. Urine culture is growing gram-negative bacilli 08/02 Patient proving slowly and gradually She is eating little bit No chest pain or abdominal pain Generally weak Patient remains on ceftriaxone for bacteremia and UTI. Discharge antibiotic as per ID team Blood pressure improved we will lower Normal Saline 75 mL/h Replace potassium magnesium per protocol 08/03 Patient is up in bed, she has generalized weakness slightly looks better today, her mentation looks improving but she is slow to respond but she answers most of the questions appropriately. Denies respiratory complaint like chest pain. She is breathing quietly. She started tolerating diet Blood pressure improved today for IV fluid of normal saline was discontinued Low potassium magnesium replaced Patient declined physical therapy before. Now she feels better hope she can participate tomorrow. Daughter wants her to go to rehab unit upon discharge. Patient encouraged to participate with therapy. We will reassess tomorrow Her infection is also improving and currently she is on ceftriaxone with a plan to be discharged on 10 days of Cipro per ID team for her bacteremia and UTI secondary to E. coli infection which is sensitive. 08/06 Patient sitting up in bed Denies any new complaints Medically stable pending placement to [facility] Family close monitor Objective - Vital Signs Vital signs: Vital Signs Temp 97.8 F 08/06/24 15:00 Pulse 72 08/06/24 15:00 Resp 16 08/06/24 15:00 BP 118/75 08/06/24 15:00 Pulse Ox 99 08/06/24 15:00 FiO2 Intake & Output 05/28/25 05/29/25 05/29/25 18:59 06:59 18:59 Intake Total 530 Balance 530 Intake: Intake, IV Titration 50 Amount cefTRIAXone 2 gm In 50 Sodium Chloride 0.9% 50 ml @ 100 mls/hr IVPB Q24HR [facility] Rx#:[id number] Oral 480 Other: Voiding Method Bedside Commode Bedside Commode # Voids 2 3 3 - Exam Bacteremia with E. coli acute urinary tract infection hyponatremia falll and generalized weakness alcohol use disorder at risk of alcohol withdrawal - Labs CBC & Chem 7: 08/04/24 09:03 08/04/24 09:03 Assessment and Plan Assessment: Bacteremia with E. coli acute urinary tract infection toxic metabolic encephalopathy hyponatremia falll and generalized weakness alcohol use disorder at risk of alcohol withdrawal borderline low BP Plan: Continue with antibiotics ceftriaxone Follow-up culture results blood in the urine Continue with CIWA thiamine Start normal signs of a defibrillator but our Infectious disease consult Cardiology team recommended no stress test or cardiac cath currently. Patient also with no chest pain Monitor blood pressure and vitals Monitor sodium level Labs and medication were reviewed.. Continue same treatment. Continue with symptomatic treatment. Resume home medication. Monitor labs and vitals. DVT and GI prophylaxis. Further recommendations as per clinical course of the pat ient DVT prophylaxis: Subcutaneous heparin GI Prophylaxis: Pepcid PT/OT: Pending Prognosis is guarded
[2024-08-07 07:28] VITALS: BP 104/66; PULSE 68; TEMP 98
--- NOTE | 2024-08-07 10:14 | P.DS ---
Providers Date of admission: 08/04/24 08:50 Attending physician: Rick Umanzor MD Consults: 07/31/24 07:11 Consult Physician Urgent Consulting Provider: [facility] Consult Reason/Comments: abn ekg Do you want consulting provider notified?: Yes 07/31/24 12:24 Consult Physician Routine Consulting Provider: Sarai Parker Consult Reason/Comments: uti Do you want consulting provider notified?: Yes Primary care physician: Becky Jeronimo Hospital Course: Diagnoses: Bacteremia with E. coli acute urinary tract infection toxic metabolic encephalopathy hyponatremia falll and generalized weakness alcohol use disorder at risk of alcohol withdrawal borderline low BP Hospital course: This is a pleasant 74 years old female with history of alcohol use disorder presents because of generalized weakness and fatigue for over 5 days. Also there was reports of falls at home. Patient was evaluated by infectious disease team and medical chief technician. She was found to have acute urinary tract infection and bacteremia secondary to UTI E. coli she was treated with IV antibiotics ceftriaxone and switch later on oral antibiotics of Cipro X 10 days per recommendation of ID team Patient also have hy hypovolemic hyponatremia and hypotension she received IV fluids and her blood pressure improved significantly. BP on open discharge 137/88. Sodium 133. Other than that she is hemodynamically stable and afebrile and other labs stable. Patient denies any other new complaint today and she is agreeable to be discharged In the beginning patient was refusing rehab because she was hypotensive after improvement in his blood pressure with IV fluid today she is agreeable to go to ECF for rehab for further strengthening exercises. Patient was cleared by all consultants including ID team and medical chief technician patient also been treated for alcohol withdrawal, currently calm with no signs symptoms of withdrawal. Patient advised to stay away from alcohol. Problems and management plan were discussed with the patient and he verbalized understanding and acceptance Patient was found stable and can be discharged to ECF for PENELOEP in guarded prognosis however he needs follow-up as an outpatient. Patient was instructed to follow up with PCP within one week and patient agrees Physical exam -Gen: patient is a AAOx3, no distress. Generally weak CVS: S1-S2, RRR, no murmur Lungs: B/L CTA, no wheezing Abdomen: soft, no distention, no tenderness, positive bowel sounds Extremity: no leg edema or induration Time spent more than 35 minutes Patient Condition at Discharge: Stable Plan - Discharge Summary New Discharge Prescriptions: New RX: Magnesium Oxide [Mag-Ox] 400 mg PO TID 3 Days #15 tab Ciprofloxacin HCl [Cipro] 500 mg PO Q12HR 10 Days #20 tab RX: Pantoprazole [Protonix] 40 mg PO AC-BRKFST 10 Days #10 tab Continue RX: Fluticasone Nasal [place] [Flonase Nasal [place]] 2 spr EA NOSTRIL DAILY RX: atenoloL [Tenormin] 50 mg PO DAILY RX: PARoxetine HCL [Paxil] 30 mg PO DAILY RX: Fluticasone Nasal [place] [Flonase Nasal [place]] 2 spr EA NOSTRIL HS PRN PRN Reason: Allergy Symptoms Discharge Medication List RX: Fluticasone Nasal [place] [Flonase Nasal [place]] 2 spr EA NOSTRIL DAILY 07/31/24 [History] RX: Fluticasone Nasal [place] [Flonase Nasal [place]] 2 spr EA NOSTRIL HS PRN 07/31/24 [History] RX: PARoxetine HCL [Paxil] 30 mg PO DAILY 07/31/24 [History] RX: atenoloL [Tenormin] 50 mg PO DAILY 07/31/24 [History] Ciprofloxacin HCl [Cipro] 500 mg PO Q12HR 10 Days #20 tab 08/04/24 [Rx] RX: Magnesium Oxide [Mag-Ox] 400 mg PO TID 3 Days #15 tab 08/04/24 [Rx] RX: Pantoprazole [Protonix] 40 mg PO AC-BRKFST 10 Days #10 tab 08/04/24 [Rx] Follow up Appointment(s)/Referral(s): Shad Etienne MD [STAFF PHYSICIAN] - 1 Week None,Stated [REFERRING] - 1-2 days Sarai Parker MD [STAFF PHYSICIAN] - 1 Week Activity/Diet/Wound Care/Special Instructions: Heart healthy diet Activity as tolerated Discharge Disposition: TRANSFER TO SNF/ECF
[2024-08-07 10:39] VITALS: RESP 19
--- NOTE | 2024-08-07 16:26 | P.PN ---
Subjective Progress Note Date: 08/07/24 Principal diagnosis: Reason for follow-up is UTI and bacteremia Patient is a 74-year-old female with a past medical history significant for alcohol abuse and nicotine dependence has been brought into the hospital for evaluation of weakness and multiple falls she did have elevated white blood positive concerning for UTI blood culture subsequently came back positive for E. coli. On today's evaluation that is 08/07/2024,the patient remains to be afebrile, patient is on room air not requiring supplemental oxygen and denies any shortness of breath no chest pain or cough.Patient denies having any nausea or vomiting, no abdominal pain and no diarrhea has been reported. No new lab has been obtained today Objective - Vital Signs Vital signs: Vital Signs Temp 98 F 08/07/24 07:00 Pulse 68 08/07/24 07:00 Resp 19 08/07/24 08:00 BP 104/66 08/07/24 07:00 Pulse Ox 95 08/07/24 07:00 FiO2 Intake & Output 08/06/24 08/07/24 08/07/24 18:59 06:59 18:59 Intake Total 1070 118 Balance 1070 118 Intake: Intake, IV Titration 50 Amount cefTRIAXone 2 gm In 50 Sodium Chloride 0.9% 50 ml @ 100 mls/hr IVPB Q24HR [facility] Rx#:[id number] Oral 1020 118 Other: Voiding Method Bedside Commode # Voids 3 1 1 - Exam GENERAL DESCRIPTION: An elderly female lying in bed in no distress RESPIRATORY SYSTEM: Unlabored breathing , decreased breath sounds at bases HEART: S1 S2 regular rate and rhythm , ABDOMEN: Soft , no tenderness EXTREMITIES: No edema feet - Labs CBC & Chem 7: 08/04/24 09:03 08/04/24 09:03 Assessment and Plan (1) Bacteremia Status: Acute Code(s): R78.81 - BACTEREMIA SNOMED Code(s): 2325508 (2) Leukocytosis Status: Acute Code(s): D72.829 - ELEVATED WHITE BLOOD CELL COUNT, UNSPECIFIED SNOMED Code(s): 284512752 (3) UTI (urinary tract infection) Status: Acute Code(s): N39.0 - URINARY TRACT INFECTION, SITE NOT SPECIFIED SNOMED Code(s): 73886815 Plan: 1patient presented hospitalized weakness multiple falls in this patient who did have a significantly positive elevated white count concerning for possible symptomatic UTI 2patient did have urine culture positive for E. coli blood cultures also growing E. coli 3 ultrasound of the abdomen did not mention any features of cholecystitis or hydronephrosis 4 patient has shown clinical improvement received adequate IV Rocephin finishing therapy with oral Cipro and a close out patient follow-up Dictation was produced using [employer] dictation software. please excuse any grammatical, word or spelling errors. Time with Patient: Less than 30
== END 2024-08-07 12:42 | DRG 871 ==
LOC: EC 02:41 → 6NMEDSUR 07:14 → OBSVTOIN 08-04 08:50
PROVIDERS: ADMIT Internal Medicine; ATTEND Internal Medicine
PROC: HZ2ZZZZ Detoxification Services for Substance Abuse Treatment (ICD-10-PCS; principal; 2024-08-04)
DX: A41.51 Sepsis due to Escherichia coli [E. coli] (principal); G92.8 Other toxic encephalopathy; E87.20 Acidosis, unspecified; J43.9 Emphysema, unspecified; F10.129 Alcohol abuse with intoxication, unspecified; F10.139 Alcohol abuse with withdrawal, unspecified; E87.1 Hypo-osmolality and hyponatremia; N39.0 Urinary tract infection, site not specified; F17.210 Nicotine dependence, cigarettes, uncomplicated; R29.6 Repeated falls; Y90.2 Blood alcohol level of 40-59 mg/100 ml; Z79.899 Other long term (current) drug therapy; Z90.710 Acquired absence of both cervix and uterus; Z71.41 Alcohol abuse counseling and surveillance of alcoholic
CPT/HCPCS: 36415; 70450; 71046; 76700; 80048; 80053; 80076; 80320; 81001; 82550; 83605; 83735; 83880; 84132; 84484; 85025; 85027; 85610; 85730; 87040; 87077; 87086; 87186; 87636; 93005; 93306; 96365; 96366; 96367; 99285